=== PATIENT | male | born 1935 | race Caucasian/White ===

== ENCOUNTER 2020-01-24 12:45 | Emergency (ER) | payer MEDICARE, OTHER, SELFPAY ==
[2020-01-24 13:06] VITALS: BP 133/71; PULSE 89; RESP 18; TEMP 36.2; O2SAT 97
--- NOTE | 2020-01-24 13:12 | ED.GENADULT ---
HPI - General Adult General Chief complaint: Urogenital-Male <Eden Stark PA-C - Last Filed: 01/24/20 21:47> Stated complaint: urinary retention <Eden Stark PA-C - Last Filed: 01/24/20 21:47> Time Seen by Provider: 01/24/20 13:12 <Eden Stark PA-C - Last Filed: 01/24/20 21:47> Source: patient <MARY Borrero Last Filed: 01/24/20 21:47> Mode of arrival: ambulatory <MARY Borrero Last Filed: 01/24/20 21:47> Limitations: no limitations <Eden Stark PA-C - Last Filed: 01/24/20 21:47> History of Present Illness HPI narrative: Patient is here because he has been unable to void since Monday after he had surgery for hemorrhoidectomy. He said he was able to push out small amounts of urine over the course of this week but today the pain became unbearable. [facility] recommended that he come to the emergency room right away. Denies fever or chills, denies constipation. He had a normal bowel movement this morning. <Eden Stark PA-C - Last Filed: 01/24/20 21:47> Onset (ago): day(s) <Eden Stark PA-C - Last Filed: 01/24/20 21:47> Relieving factors: none <MARY Borrero Last Filed: 01/24/20 21:47> Exacerbating factors: none <MARY Borrero Last Filed: 01/24/20 21:47> Related Data Home medications: Home Medications Medication Instructions Recorded Confirmed Lactobacillus acidophilus 10 mg PO DAILY 02/28/19 04/25/19 atorvastatin 40 mg tablet 40 mg PO DAILY 02/28/19 04/25/19 docusate sodium 100 mg capsule 100 mg PO DAILY 02/28/19 04/25/19 prednisolone sodium phosphate 20 20 mg PO DAILY 02/28/19 04/25/19 mg/5 mL (4 mg/mL) oral solution triamcinolone acetonide 0.025 % 1 applic TOPICAL DAILY 02/28/19 04/25/19 topical cream witch gaston 50 % topical pads 1 pad TOPICAL BID 02/28/19 04/25/19 <Eden Stark PA-C - Last Filed: 01/24/20 21:47> Allergies/adverse reactions: Allergies Allergy/AdvReac Type Severity Reaction Status Date / Time simvastatin Allergy Unknown Unknown Verified 04/25/19 13:04 <Eden Stark PA-C - Last Filed: 01/24/20 21:47> Review of Systems Review of Systems: All systems reviewed & are unremarkable except as noted in HPI and below <Eden Stark PA-C - Last Filed: 01/24/20 21:47> [facility] Family History Family History: Family History Other Cerebrovascular accident Diabetes mellitus <Eden Stark PA-C - Last Filed: 01/24/20 21:47> Social History Social History: Social History Smoking status: Never smoker Alcohol intake: never Gender identity (if verbalized by the patient): Male <Eden Stark PA-C - Last Filed: 01/24/20 21:47> Exam Const: General: no acute distress and alert <Eden Stark PA-C - Last Filed: 01/24/20 21:47> Orientation/consciousness: patient oriented x3 <Eden Stark PA-C - Last Filed: 01/24/20 21:47> HENMT: Head: normal to inspection <Eden Stark PA-C - Last Filed: 01/24/20 21:47> Resp: Effort & Inspection: normal respiratory effort <Eden Stark PA-C - Last Filed: 01/24/20 21:47> Auscultation: clear to auscultation bilaterally <Eden Stark PA-C - Last Filed: 01/24/20 21:47> Cardio: Rate: regular rate <MARY Borrero Last Filed: 01/24/20 21:47> Rhythm: regular rhythm <MARY Borrero Last Filed: 01/24/20 21:47> GI: Inspection: distended <Eden Stark PA-C - Last Filed: 01/24/20 21:47> GI Palp: Yes Firmness to palpation present (GI) and Yes Bladder palpation abnormal (suprapubic tenderness) <MARY Borrero Last Filed: 01/24/20 21:47> Auscultation: normal bowel sounds <MARY Borrero Last Filed: 01/24/20 21:47> Back/Spine/Pelvis: Back: no CVA tenderness <MARY Borrero
[2020-01-24 14:23] LABS: Add Urine Microscopic? YES; Appearance Urine Clear (Clear); Bacteria Urine Trace /hpf; Bilirubin Urine Negative (Negative); Blood Urine Negative (Negative); Color Urine Yellow (Yellow); Glucose Urine UA Negative (Negative); Ketones Urine Trace mg/dL (Negative); Leukocyte Esterase Ur Negative LEU/UL (Negative); Mucus Urine Rare /lpf; Nitrate Urine Negative (Negative); Protein Urine Negative (Negative); RBC Urine 0-2 /hpf (0-2); Specific Grav Ur 1.013 (1.001-1.035); Urobilinogen Urine Negative mg/dL (<2.0); WBC Urine 0-3 /hpf
--- NOTE | 2020-01-24 15:18 | PC.NURSE ---
leg bag provided and fish care instructions given to patient
== END 2020-01-24 15:19 | disposition home or self-care (01) ==
PROVIDERS: Emergency Provider Emergency Medicine
DX: R33.9 Retention of urine, unspecified (principal); Z98.890 Other specified postprocedural states
CPT/HCPCS: 81001; 99283

== ENCOUNTER 2020-01-31 12:41 | Emergency (ER) | payer MEDICARE, OTHER, SELFPAY ==
[2020-01-31] VITALS (7 sets, daily range): BP systolic 104–120; BP diastolic 72–82; PULSE 79–90; RESP 12–19; TEMP 36.7; O2SAT 93–96
--- NOTE | 2020-01-31 13:47 | ED.GENADULT ---
HPI - General Adult General Chief complaint: Extremity Problem,Nontraumatic <Elgin Casey PA-C - Last Filed: 01/31/20 14:59> Stated complaint: ankle and leg swelling <Elgin Casey PA-C - Last Filed: 01/31/20 14:59> Time Seen by Provider: 01/31/20 12:53 <Elgin Casey PA-C - Last Filed: 01/31/20 14:59> Source: patient <Elgin Casey PA-C - Last Filed: 01/31/20 14:59> Mode of arrival: ambulatory <Elgin Casey PA-C - Last Filed: 01/31/20 14:59> Limitations: no limitations <Elgin Casey PA-C - Last Filed: 01/31/20 14:59> History of Present Illness HPI narrative: Patient presents with chief complaint of swelling to bilateral ankles and feet that has been occurring since Monday. Patient states that he wonders if it is connected to his Acosta catheter insertion area hemorrhoidectomy on Monday. Patient does not have calf pain erythema or swelling. Patient states that [facility]. Patient will not answer straightly whether or not he has been elevating his lower extremities or sitting with him by going down. He denies heart or renal failure or previous issues with fluid retention. Patient denies being on the water pills. Patient denies chest pain, shortness of breath, fever, chills, cellulitis, drainage or any other symptoms. <Elgin Casey PA-C - Last Filed: 01/31/20 14:59> Related Data Home medications: Home Medications Medication Instructions Recorded Confirmed Lactobacillus acidophilus 10 mg PO DAILY 02/28/19 04/25/19 atorvastatin 40 mg tablet 40 mg PO DAILY 02/28/19 04/25/19 docusate sodium 100 mg capsule 100 mg PO DAILY 02/28/19 04/25/19 triamcinolone acetonide 0.025 % 1 applic TOPICAL DAILY 02/28/19 04/25/19 topical cream witch gaston 50 % topical pads 1 pad TOPICAL BID 02/28/19 04/25/19 <Elgin Casey PA-C - Last Filed: 01/31/20 14:59> Allergies/adverse reactions: Allergies Allergy/AdvReac Type Severity Reaction Status Date / Time simvastatin Allergy Unknown Unknown Verified 01/31/20 12:56 <Elgin Casey PA-C - Last Filed: 01/31/20 14:59> Review of Systems Review of Systems: Narrative: CONSTITUTIONAL: Denies fever, chills, or sweats. EYES: Denies visual changes, redness, or discharge. ENT: Denies rhinorrhea, congestion, sore throat, or otalgia. CARDIOVASCULAR: Denies chest pain, palpitations, or edema. RESPIRATORY: Denies cough or dyspnea. GASTROINTESTINAL: Denies abdominal pain, nausea, vomiting, or diarrhea. GENITOURINARY: Denies dysuria or hematuria. SKIN: Denies rash or itching. MUSCULOSKELETAL: Reports feet and ankle pain, swelling denies back pain, myalgia or joint pain NEUROLOGIC: Denies headache, numbness, dizziness, or weakness. PSYCHIATRIC: Denies anxiety or depression. <Elgin Casey PA-C - Last Filed: 01/31/20 14:59> [facility] Family History Family History: Family History Other Cerebrovascular accident Diabetes mellitus <Elgin Casey PA-C - Last Filed: 01/31/20 14:59> Social History Social History: Social History Smoking status: Never smoker Alcohol intake: never Gender identity (if verbalized by the patient): Male <Elgin Casey PA-C - Last Filed: 01/31/20 14:59> Exam Narrative: Exam Narrative: GENERAL: Well-appearing, well-nourished, and in no acute distress. Acosta catheter in place with normal urine in bag. HEAD: Normocephalic, atraumatic. EYES: PERRLA and EOMI. CHEST: Clear to auscultation. No respiratory distress. HEART: Regular rate and rhythm. DP pulses present BL EXTREMITIES: edema to bilateral ankles and feet, not appreciated proximally. Not erythematous, hot, ecchymotic. cap refill and DP intact. no pain or appreciated swelling to lower legs. No pain with palpation of calf. no open wounds or weeping. SKIN: Warm, dry, no rash. N
[2020-01-31 14:12] LABS: Basophils Absolute Auto 0.1 K/mm3 (0.0-0.1); Basophils Percent Auto 0.7 % (0.2-1.2); Eosinophils Absolute Auto 0.1 K/mm3 (0-0.3); Eosinophils Percent Auto 1.3 % (0-4.4); Hematocrit 38.4 % (42.0-52.0); Immature Granulocyte Absolute 0.07 K/mm3 (0.00-0.031); Immature Granulocyte Percent A 0.8 % (0-0.5); Lymphocytes Absolute Auto 1.63 K/mm3 (0.9-3.2); Lymphocytes Percent Auto 18.3 % (18.3-44.2); Mean Corpuscular HGB Conc 33.9 g/dl (32-36); Mean Corpuscular Hemoglobin 32.5 pg (26-34); Mean Platelet Volume 10.4 fl (7.4-10.4); Monocytes Absolute Auto 0.9 K/mm3 (0.1-0.6); Monocytes Percent Auto 10.4 % (2.6-8.5); Neutrophils Absolute Auto 6.1 K/mm3 (1.3-6.7); Neutrophils Percent Auto 68.5 % (45.5-73.1); Platelet Count Result 270 k/mm3 (150-375); Red Cell Distribution Width 13.1 % (11.5-14.5); White Blood Count 8.9 K/mm3 (4.5-10.0)
[2020-01-31 14:30] LABS: Alanine Aminotransferase 15 U/L (4-50); Albumin Level 3.7 g/dL (3.5-5.1); Alkaline Phosphatase 54 U/L (38-126); Anion Gap 7 mmol/L (8-16); Aspartate Amino Transferase 31 U/L (17-59); Bilirubin,Total 0.4 mg/dL (0.2-1.3); Blood Urea Nitrogen 9 mg/dL (9-20); Calcium 8.9 mg/dL (8.4-10.2); Carbon Dioxide 29 mmol/L (22-30); Chloride 101 mmol/L (98-107); Estimated CRCL calculation 50 ml/min; Estimated Glomerular Filt Rate > 60; Glucose 94 mg/dL (75-110); Potassium 4.2 mmol/L (3.4-5.0); Sodium 137 mmol/L (137-145)
== END 2020-01-31 15:10 | disposition home or self-care (01) ==
PROVIDERS: Physician Assistant; Emergency Provider General Practice
DX: M79.89 Other specified soft tissue disorders (principal)
CPT/HCPCS: 36415; 80053; 85025; 99283

== ENCOUNTER 2020-02-25 21:04 | Inpatient (IN) | payer MEDICARE, OTHER, SELFPAY ==
--- NOTE | ~2020-02-25 | CT_ITS ---
EXAMINATION: CT abdomen pelvis w con EXAM DATE: 02/25/2020 23:55 INDICATION: Lower abdominal pain with urinary retention. TECHNIQUE: Spiral CT of the abdomen and pelvis was performed following intravenous injection of 100 m L Omnipaque 350. Axial, coronal and sagittal images were reviewed. The dose-length product (DLP) fo r this examination was 715.94 mGy-cm. The exposure was tailored according to patient size (auto mA e xposure control), and iterative reconstruction (ASIR) was used as additional dose reduction technique . There is no prior study for comparison. FINDINGS: The largest liver cyst is in the left, measures 1.1 cm. The spleen, pancreas, and adrenal glands are unremarkable. Gallbladder is unremarkable. No biliary obstruction. Portal and splenic v eins are patent. Kidneys enhance symmetrically. There is no hydronephrosis. There is mild prostat omegaly. There is a Acosta catheter within the bladder, which is collapsed. There is bladder wall thickening an d surrounding inflammation. Appearance is consistent with cystitis, but correlate with urinalysis. T here is no retroperitoneal or pelvic lymphadenopathy. There is mild scattered arteriosclerotic dise ase. There are small bilateral inguinal, and small umbilical fat-containing hernias. The appendix is normal. The stomach and small bowel are unremarkable. There is colonic fluid, corre late for diarrhea. There is extensive sigmoid colonic diverticulosis. Small region of inflammation ad jacent to one of the diverticula, uncomplicated diverticulitis. No free intraperitoneal gas. There is cardiomegaly. Sternotomy wires. Lingular and right middle lobe subsegmental atelectasis. There are no osteoblastic or osteolytic lesions identified. Chronic mild compression fracture of the L1 tonia tebral body. IMPRESSION: 1. Bladder wall thickening, enhancing mucosa and adjacent inflammation. Cystitis. Acosta in position. 2. Uncomplicated sigmoid diverticulitis. Probable diarrhea. 3. Mild prostatomegaly. 4. Fat-containing hernias. Reviewed, dictated and finalized at location G. ANALYST IMPRESSION: 1. Bladder wall thickening, enhancing mucosa and adjacent inflammation. Cystit is. Acosta in position. 2. Uncomplicated sigmoid diverticulitis. Probable diarrhea. 3. Mild prostatomegaly. 4. Fat-containing hernias.
[2020-02-25 21:04] VITALS: BP 111/55; PULSE 112; RESP 24; TEMP 37.1; O2SAT 95
--- NOTE | 2020-02-25 21:52 | ED.WEAKNESS ---
HPI - Weakness General Chief complaint: Weakness Stated complaint: FALL Time Seen by Provider: 02/25/20 21:07 History of Present Illness HPI Narrative: Patient is an 84-year-old male who presents ER with weakness and urinary retention. Patient reports in early January he had a hemorrhoidectomy and couple days later he was suffering from urinary retention. He had a Acosta catheter placed and it remained there until 02/21/2020. After its removal he was able to void up until the last 2 days where he has had significant decrease in his ability to urinate. He is cut lower abdominal pressure. Reports some mild dysuria. No fevers or chills or sweats. Prior to arriving he was on the toilet trying to use restroom and became very lightheaded and fell down. He did not lose consciousness or strike his head. Patient ran out of his Flomax yesterday. Related Data Home Medications Medication Instructions Recorded Confirmed Lactobacillus acidophilus 10 mg PO DAILY 02/28/19 02/26/20 atorvastatin 40 mg tablet 40 mg PO DAILY 02/28/19 02/26/20 docusate sodium 100 mg capsule 100 mg PO DAILY 02/28/19 02/26/20 triamcinolone acetonide 0.025 % 1 applic TOPICAL DAILY 02/28/19 02/26/20 topical cream witch gaston 50 % topical pads 1 pad TOPICAL BID 02/28/19 02/26/20 aspirin 81 mg PO DAILY 02/26/20 02/26/20 loratadine 10 mg PO DAILY 02/26/20 02/26/20 Allergies Allergy/AdvReac Type Severity Reaction Status Date / Time simvastatin Allergy Unknown Unknown Verified 02/26/20 01:33 Review of Systems Review of Systems: All systems reviewed & are unremarkable except as noted in HPI and below Constitutional: Constitutional: Denies chills, Denies fever(s) and Reports weakness ENT: Denies nasal congestion and Denies sore throat Gastrointestinal: Gastrointestinal: Reports abdominal pain, Denies diarrhea, Denies nausea and Denies vomiting Genitourinary: Genitourinary: Reports oliguria, Reports dysuria and Denies urinary frequency Neurologic: Denies syncope, Denies focal weakness and Denies numbness PMF Past Medical History Medical History (Updated 02/26/20 @ 03:13 by Yuri Jordan MD) Grade III internal hemorrhoids Surgical History Surgical History (Updated 02/25/20 @ 22:01 by Yuri Jordan MD) H/O hemorrhoidectomy Family History Family History Other Cerebrovascular accident Diabetes mellitus Social History Social History Smoking status: Former smoker Tobacco type: cigarettes Second hand tobacco smoke exposure: Yes Smoking end date: 02/21/82 Alcohol intake: never Substance use: never Substance use type: does not use Gender identity (if verbalized by the patient): Male Sexual Orientation (if Verbalized by the Patient): Straight or Heterosexual Exam Narrative: Exam Narrative: GENERAL: Well-appearing, well-nourished, and in no acute distress. HEAD: Normocephalic, atraumatic. CHEST: Clear to auscultation. No respiratory distress. HEART: Regular rate and rhythm. Normal peripheral pulses. ABDOMEN: Soft, mild suprapubic discomfort with no guarding, nondistended. EXTREMITIES: Normal range of motion. No edema. SKIN: Warm, dry, no rash. NEURO: Alert and oriented x3. PSYCH: Normal mood and affect. Course Course Emergency Course: Admit to hospitalist. Ceftriaxone and flagyl for UTI/diverticulitis. Vital Signs Vital signs: Vital Signs Temperature 98.8 F 02/25/20 21:04 Pulse Rate 112 H 02/25/20 21:04 Respiratory Rate 24 H 02/25/20 21:04 Blood Pressure 111/55 L 02/25/20 21:04 Pulse Oximetry 95 02/25/20 21:04 Temperature 97.5 F L 02/26/20 02:40 Pulse Rate 59 L 02/26/20 02:40 Respiratory Rate 20 02/26/20 02:40 Blood Pressure 125/66 02/26/20 02:40 Pulse Oximetry 99 02/26/20 02:40 MDM - Weakness Lab Data Result diagrams: 02/25/20 22:02 02/25/20
[2020-02-25 22:08] VITALS: BP 103/64; PULSE 95
[2020-02-25 22:09] VITALS: BP 105/63; PULSE 100
[2020-02-25 22:09] LABS: Basophils Absolute Auto 0.1 K/mm3 (0.0-0.1); Basophils Percent Auto 0.2 % (0.2-1.2); Hematocrit 39.4 % (42.0-52.0); Hemoglobin 13.7 g/dL (14.0-18.0); Immature Granulocyte Absolute 0.25 K/mm3 (0.00-0.031); Immature Granulocyte Percent A 0.9 % (0-0.5); Lymphocytes Absolute Auto 0.92 K/mm3 (0.9-3.2); Lymphocytes Percent Auto 3.2 % (18.3-44.2); Mean Corpuscular HGB Conc 34.8 g/dl (32-36); Mean Corpuscular Hemoglobin 32.8 pg (26-34); Mean Corpuscular Volume 94.3 fl (80-100); Mean Platelet Volume 10.8 fl (7.4-10.4); Monocytes Absolute Auto 3.1 K/mm3 (0.1-0.6); Monocytes Percent Auto 10.6 % (2.6-8.5); Neutrophils Absolute Auto 24.6 K/mm3 (1.3-6.7); Neutrophils Percent Auto 85.1 % (45.5-73.1); Platelet Count Result 233 k/mm3 (150-375); Red Blood Count 4.18 M/mm3 (4.6-6.20); Red Cell Distribution Width 13.5 % (11.5-14.5); White Blood Count 28.9 K/mm3 (4.5-10.0)
[2020-02-25 22:10] VITALS: BP 83/52; PULSE 104
[2020-02-25 22:19] LABS: Anion Gap 7 mmol/L (8-16); Blood Urea Nitrogen 19 mg/dL (9-20); Calcium 9.2 mg/dL (8.4-10.2); Carbon Dioxide 25 mmol/L (22-30); Chloride 101 mmol/L (98-107); Estimated Glomerular Filt Rate 58; Glucose 142 mg/dL (75-110); Potassium 3.8 mmol/L (3.4-5.0); Sodium 133 mmol/L (137-145)
[2020-02-25 22:52] LABS: Lactic Acid Reflex 1.6 mmol/L (0.7-2.1)
[2020-02-25] MEDS: SODIUM CHLORIDE 0.9% IV 1,000 ML 999 ML IV CONT (23:10)
[2020-02-25 23:11] VITALS: BP 107/69; PULSE 96; RESP 18; O2SAT 98
[2020-02-25 23:22] LABS: Add Urine Microscopic? YES; Appearance Urine Turbid (Clear); Bilirubin Urine Negative (Negative); Blood Urine 1+ (Negative); Color Urine Yellow (Yellow); Glucose Urine UA Negative (Negative); Ketones Urine Trace mg/dL (Negative); Leukocyte Esterase Ur 2+ LEU/UL (Negative); Mucus Urine Heavy /lpf; Nitrate Urine Positive (Negative); Protein Urine 2+ mg/dL (Negative); RBC Urine 51-75 /hpf (0-2); Specific Grav Ur 1.019 (1.001-1.035); Squamous Epithelial Cell Urine Few /hpf (Few); Urobilinogen Urine Negative mg/dL (<2.0); WBC Urine >75 /hpf
[2020-02-26] VITALS (10 sets, daily range): BP systolic 82–125; BP diastolic 41–67; PULSE 59–116; RESP 18–20; TEMP 36.3–37.3; O2SAT 91–99; BMI 30.6
[2020-02-26] MEDS: SODIUM CHLORIDE 0.9% IV 1,000 ML 999 ML IV CONT
--- NOTE | 2020-02-26 01:14 | PM.IMHP ---
H&P: HPI History of Present Illness Date/Time: 02/26/20 01:14 Che Complaint: Urinary retention, fall, weakness Narrative: Herb Hays is a 84 year old male with past medical history of hemorrhoids status post hemorrhoidectomy, urinary retention who presents the ED with complaints of urinary retention. Patient had hemorrhoidectomy on 01/20/2020. He then presented to the ED on 01/24/2020 with urinary retention and was given a Acosta catheter and Flomax Rx. [place] [facility] up [place] and had Acosta catheter removed 02/21/2020. He was able to urinate for 2 days with no problems and then starting having issues on 02/23/2020. He now ran out of his Flomax as well. Patient states he has never had issues with BPH or urinary retention before the surgery. It appears patient has had a prolonged course of postop urinary retention, however I wonder if there was any neurogenic bladder complications from the hemorrhoidectomy. Of note he states he also had issues with constipation and used mineral oil with good results with 9 bowel movements yesterday. He felt so weak that he fell off of his commode and could not get up on his own. He needed help from his daughter. He denies any trauma to his head or any symptoms from the fall. He denies fever, chills, nausea, vomiting, chest pain. In the ED: In ED patient was found to have cystitis with positive UA and CT findings consistent with acute cystitis. Acosta catheter was placed. CT scan also showed diverticulitis and Flagyl was added for antibiotics. Was given IV fluid boluses with good improvement was blood pressure. Patient admitted to medical medical floor without telemetry. Review of Systems Review of Systems: Narrative: Constitutional: No Fever, No Chills, No Night Sweats, No Fatigue, No Malaise ENT/Mouth: No Hearing Changes, No Ear Pain, No Nasal Congestion, No Sinus Pain, No Hoarseness, No sore throat, No Rhinorrhea, No Swallowing Difficulty Eyes: No Eye Pain, No Redness, No Vision Changes Cardiovascular: No Chest Pain, No Palpitations, No Dyspnea on Exertion, No Orthopnea, No Claudication, No Edema Respiratory: No Cough, No Sputum, No Wheezing, No Shortness of Breath Gastrointestinal: Endorses tenesmus, constipation and subsequent diarrhea after mineral oil. No Nausea, No Vomiting, No Abdominal Pain, No Heartburn, No Hematochezia, No Melena Genitourinary: Complaints of urinary retention, urgency. Denies hematuria. Musculoskeletal: No Arthralgias, No Myalgias, No Joint Swelling, No Joint Stiffness, No Back Pain Skin: No Skin Lesions, No Pruritis, No Hair Changes Neuro: No Weakness, No Numbness, No Paresthesias, No Loss of Consciousness, No Syncope, No Dizziness, No Headache Psych: No Anxiety/Panic, No Depression, No Insomnia Heme: No Bruising, No Bleeding Lymph: No Adenopathy Endocrine: No Polyuria, No Polydipsia, No Temperature Intolerance [facility] Past Medical History Medical History Essential hypertension Grade III internal hemorrhoids Hyperlipidemia Seasonal allergies Surgical History Surgical History H/O hemorrhoidectomy Hx of mitral valve repair Family History Family History Other Cerebrovascular accident Diabetes mellitus Social History Social History (Updated 02/26/20 @ 05:09 by Armand Castano DO) Social History: [employer] , 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
[2020-02-26] MEDS: metroNIDAZOLE 500 MG/ISO 100ML 500 MG/100 ML BAG 100 MG IVPB ×3 (01:26→17:08)
--- NOTE | 2020-02-26 02:18 | ADMGEN ---
This patient, Herb Hays, was admitted to 2 Medical Room 260-. Patient/family oriented to hospital policies and general routines including ID bracelet, bed and alarms, visiting hours, pain management, procedures, bathroom and other care routines, personal items, smoking policy, room service/diet, and visiting hours. Information on how to activate the Rapid Response Team has been discussed. Patient/Family are encouraged to report perceived risks to care and to ask questions if they do not understand what they are told or what they should do.
[2020-02-26] MEDS: SODIUM CHLORIDE 0.9% IV 1,000 ML 125 ML IV CONT (02:55)
[2020-02-26 09:29] LABS: Basophils Absolute Auto 0.1 K/mm3 (0.0-0.1); Basophils Percent Auto 0.3 % (0.2-1.2); Eosinophils Absolute Auto 0.2 K/mm3 (0-0.3); Eosinophils Percent Auto 0.5 % (0-4.4); Hemoglobin 11.3 g/dL (14.0-18.0); Immature Granulocyte Absolute 0.44 K/mm3 (0.00-0.031); Immature Granulocyte Percent A 1.4 % (0-0.5); Lymphocytes Absolute Auto 1.17 K/mm3 (0.9-3.2); Lymphocytes Percent Auto 3.7 % (18.3-44.2); Mean Corpuscular HGB Conc 34.2 g/dl (32-36); Mean Corpuscular Volume 96.5 fl (80-100); Mean Platelet Volume 10.9 fl (7.4-10.4); Monocytes Absolute Auto 2.4 K/mm3 (0.1-0.6); Monocytes Percent Auto 7.5 % (2.6-8.5); Neutrophils Absolute Auto 27.4 K/mm3 (1.3-6.7); Neutrophils Percent Auto 86.6 % (45.5-73.1); Platelet Count Result 203 k/mm3 (150-375); Red Blood Count 3.42 M/mm3 (4.6-6.20); Red Cell Distribution Width 13.8 % (11.5-14.5); White Blood Count 31.6 K/mm3 (4.5-10.0)
[2020-02-26 09:39] LABS: Alanine Aminotransferase 17 U/L (4-50); Albumin Level 2.9 g/dL (3.5-5.1); Alkaline Phosphatase 42 U/L (38-126); Anion Gap 6 mmol/L (8-16); Aspartate Amino Transferase 47 U/L (17-59); Bilirubin,Total 0.8 mg/dL (0.2-1.3); Blood Urea Nitrogen 17 mg/dL (9-20); Calcium 7.7 mg/dL (8.4-10.2); Carbon Dioxide 22 mmol/L (22-30); Chloride 103 mmol/L (98-107); Estimated CRCL calculation 48 ml/min; Estimated Glomerular Filt Rate > 60; Glucose 205 mg/dL (75-110); Potassium 4.1 mmol/L (3.4-5.0); Sodium 131 mmol/L (137-145)
--- NOTE | 2020-02-26 10:11 | WPDURCON ---
Assessment and Plan Assessment and plan (1) UTI (urinary tract infection): Qualifiers: Hematuria presence: without hematuria Urinary tract infection type: acute cystitis Qualified Code(s): N30.00 - Acute cystitis without hematuria Code(s): N39.0 - Urinary tract infection, site not specified Status: Acute Assessment and Plan: Continue IV Ceftriaxone, tailor to culture results. Likely secondary to either multiple catheter placement or retention. (2) Urinary retention: Code(s): R33.9 - Retention of urine, unspecified Status: Acute Assessment and Plan: Will restart Flomax 0.4mg BID, and start Finasteride 5mg QD. He will keep fish catheter in place until he follows up with us. He has failed two voiding trials at the [facility], therefore we will not do another until he has [facility] in the office. No further evaluation necessary at this time. (3) Indwelling Fish catheter present: Code(s): Z97.8 - Presence of other specified devices Status: Acute Urology Consult Note HPI Date Seen: 02/26/20 Requesting Physician: TRISTIAN Beaver Primary Care Provider: [facility] Consult Narrative Narrative: Herb Hays is a 84 year old male who presented to the ER after a fall at home while he was on the toilet trying to urinate. He had a hemorrhoidectomy a month ago at the [facility] and quickly developed urinary retention which landed him in our ER on 01/24/2020 for a fish catheter and Flomax 0.4mg BID. He since then has had two voiding trials at the [facility] and has not passed either one, most recently this week. He was seen in the ER without a fish and one was placed. A CT scan was done showing bladder wall thickening, cystitis and mild prostatomegaly. His WBC is 28.9, creatinine 1.20, and UA is positive for infection, urine culture and blood cultures are pending. He states that prior to his hemorrhoidectomy he had no symptoms of BPH or OAB. He has never seen a urologist prior to this episode. He tolerates Flomax BID well, but has run out of the medication and hasn't had it in three days. Review of Systems Cardiovascular: Cardiovascular: Denies chest pain Respiratory: Respiratory: Reports no additional respiratory complaints Gastrointestinal: Gastrointestinal: Denies abdominal pain, Denies nausea and Denies vomiting Genitourinary: Genitourinary: Denies hematuria, Denies flank pain and Reports urinary hesitancy PMF Past Medical History Medical History Essential hypertension Grade III internal hemorrhoids Hyperlipidemia Seasonal allergies Surgical History Surgical History H/O hemorrhoidectomy Hx of mitral valve repair Family History Family History Other Cerebrovascular accident Diabetes mellitus Social History Social History Social History: [employer] , 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 status: Former smoker Tobacco type: cigarettes Second hand tobacco smoke exposure: Yes Smoking end date: 02/21/82 Alcohol intake: never Substance use: never Substance use type: does not use Living arrangements: with family Occupation/Education: retired Gender identity (if verbalized by the patient): Male Sexual Orientation (if Verbalized by the Patient): Straight or Heterosexual Meds Home Medications and Allergies Home Medications Medication Instructions Recorded Confirmed Type Lactobacillus acidophilus 10 mg PO DAILY 02/28/19 02/26/20 History atorvastatin 40 mg tablet 40 mg PO DAILY 02/28/19 02/26/20 History docusate sodium 100 mg capsule 100 mg PO DAILY 02/28/19 02/26/20 History hydrocortisone acetate 25 mg 25 mg RECTAL DAILY #14 each 02/28/19 02/26/20 Rx rectal suppository triamcinolone acetonide 0.02
[2020-02-26] MEDS: SODIUM CHLORIDE 0.9% IV 1,000 ML 100 ML IV CONT ×2 (10:38→20:52)
[2020-02-26] MEDS: ATORVASTATIN 40 MG TABLET PO (10:41)
[2020-02-26] MEDS: TAMSULOSIN HCL 0.4 MG CAPSULE PO ×2 (10:41→17:08)
[2020-02-26] MEDS: LORATADINE 10 MG TABLET PO (10:41)
[2020-02-26] MEDS: DOCUSATE SODIUM 100 MG CAPSULE PO (10:41)
[2020-02-26] MEDS: ASPIRIN 81 MG ENTERIC TABLET PO (10:41)
[2020-02-26] MEDS: ACETAMINOPHEN 325 MG TABLET 650 MG PO (10:46)
[2020-02-26] MEDS: ACIDOPHILUS/BULGARICUS CHEWABLE TABLET 1 TABLET PO (11:13)
[2020-02-26] MEDS: FINASTERIDE 5 MG TABLET PO (11:13)
--- NOTE | 2020-02-26 14:44 | P.PNIM_ITS ---
Progress Note: A&P Assessment and Plan (1) Urinary retention: Code(s): R33.9 - Retention of urine, unspecified Status: Acute Assessment and Plan: * Patient presents with urinary retention starting on 01/24/2020 after his hemorrhoidectomy 01/20/2020. At that time he was discharged home with a Acosta catheter to follow-up with the [facility]. Acosta catheter removed at [facility] 02/21/2020, patient developed new urinary retention on 02/23/2020. That is his 2nd failed voiding trial at [facility] * Appreciate urology recommendations. He wishes to follow with our group now instead of [facility]. Noted plan to keep Acosta in until office follow up for urodynamics. * Continue Flomax BID and Proscar has been added. (2) UTI (urinary tract infection): Qualifiers: Hematuria presence: without hematuria Urinary tract infection type: acute cystitis Qualified Code(s): N30.00 - Acute cystitis without hematuria Code(s): N39.0 - Urinary tract infection, site not specified Status: Acute Assessment and Plan: * Suspect related to urinary retention vs multiple catheter placements vs. both. UA grossly abnormal and CT demonstrated bladder wall thickening consistent with cystitis. * Continue IV Rocephin (day 2) with urine and blood cultures pending. (3) Sepsis: Qualifiers: Sepsis type: sepsis due to unspecified organism Sepsis acute organ dysfunction status: without acute organ dysfunction Qualified Code(s): A41.9 - Sepsis, unspecified organism Code(s): A41.9 - Sepsis, unspecified organism Status: Acute Assessment and Plan: * Criteria met on arrival with leukocytosis and mild tachycardia. Suspected source is urinary, see above. * Continue abx, monitor urine output and vital signs. (4) Diverticulitis: Code(s): K57.92 - Diverticulitis of intestine, part unspecified, without perforation or abscess without bleeding Status: Acute Assessment and Plan: * Patient states he had 9 episodes diarrhea yesterday after using mineral oil to treat constipation. CT demonstrates small area of inflammation near a diverticula that may represent uncomplicated diverticulitis. * No abdominal pain today. Continue rocephin and flagyl to cover for possible diverticulitis. No further diarrhea today. * Can order stool studies if he has more diarrhea. (5) Orthostasis: Code(s): I95.1 - Orthostatic hypotension Status: Acute Assessment and Plan: * Still with significant orthostasis this morning, symptomatic with some dizziness. May be related to hypovolemia/GI losses. * Continue IV hydration. Check orthostatics Q shift, monitor. (6) Fall: Qualifiers: Encounter type: initial encounter Qualified Code(s): W19.XXXA - Unspecified fall, initial encounter Code(s): W19.XXXA - Unspecified fall, initial encounter Status: Acute Assessment and Plan: * Patient had a fall 02/23 after sitting on commode, suspect secondary to weakness from UTI, retention, orthostasis. * PT/OT. (7) Essential hypertension: Code(s): I10 - Essential (primary) hypertension Status: Chronic Assessment and Plan: * History of hypertension now with orthostatic hypotension. Hold his home lopressor. Monitor BP and adjust treatment as needed. Subje
--- NOTE | 2020-02-26 14:44 | PM.IMPN ---
Progress Note: A&P Assessment and Plan (1) Urinary retention: Code(s): R33.9 - Retention of urine, unspecified Status: Acute Assessment and Plan: Patient presents with urinary retention starting on 01/24/2020 after his hemorrhoidectomy 01/20/2020. At that time he was discharged home with a Acosta catheter to follow-up with the [facility]. Acosta catheter removed at [facility] 02/21/2020, patient developed new urinary retention on 02/23/2020. That is his 2nd failed voiding trial at [facility] Appreciate urology recommendations. He wishes to follow with our group now instead of [facility]. Noted plan to keep Acosta in until office follow up for urodynamics. Continue Flomax BID and Proscar has been added. (2) UTI (urinary tract infection): Qualifiers: Hematuria presence: without hematuria Urinary tract infection type: acute cystitis Qualified Code(s): N30.00 - Acute cystitis without hematuria Code(s): N39.0 - Urinary tract infection, site not specified Status: Acute Assessment and Plan: Suspect related to urinary retention vs multiple catheter placements vs. both. UA grossly abnormal and CT demonstrated bladder wall thickening consistent with cystitis. Continue IV Rocephin (day 2) with urine and blood cultures pending. (3) Sepsis: Qualifiers: Sepsis type: sepsis due to unspecified organism Sepsis acute organ dysfunction status: without acute organ dysfunction Qualified Code(s): A41.9 - Sepsis, unspecified organism Code(s): A41.9 - Sepsis, unspecified organism Status: Acute Assessment and Plan: Criteria met on arrival with leukocytosis and mild tachycardia. Suspected source is urinary, see above. Continue abx, monitor urine output and vital signs. (4) Diverticulitis: Code(s): K57.92 - Diverticulitis of intestine, part unspecified, without perforation or abscess without bleeding Status: Acute Assessment and Plan: Patient states he had 9 episodes diarrhea yesterday after using mineral oil to treat constipation. CT demonstrates small area of inflammation near a diverticula that may represent uncomplicated diverticulitis. No abdominal pain today. Continue rocephin and flagyl to cover for possible diverticulitis. No further diarrhea today. Can order stool studies if he has more diarrhea. (5) Orthostasis: Code(s): I95.1 - Orthostatic hypotension Status: Acute Assessment and Plan: Still with significant orthostasis this morning, symptomatic with some dizziness. May be related to hypovolemia/GI losses. Continue IV hydration. Check orthostatics Q shift, monitor. (6) Fall: Qualifiers: Encounter type: initial encounter Qualified Code(s): W19.XXXA - Unspecified fall, initial encounter Code(s): W19.XXXA - Unspecified fall, initial encounter Status: Acute Assessment and Plan: Patient had a fall 02/23 after sitting on commode, suspect secondary to weakness from UTI, retention, orthostasis. PT/OT. (7) Essential hypertension: Code(s): I10 - Essential (primary) hypertension Status: Chronic Assessment and Plan: History of hypertension now with orthostatic hypotension. Hold his home lopressor. Monitor BP and adjust treatment as needed. Subjective Date/time seen: 02/26/20 0945 Interval history: Mr. Hays is a pleasant 84yo M admitted for orthostatic hypotension, UTI, urinary retention, diverticulitis. He fell at home yesterday trying to get off toilet and tells me he has been feeling weaker over the last 1 month. Reports feeling mildly dizzy with standing for orthostatic vitals earlier. He denies chest pain
[2020-02-26] MEDS: ONDANSETRON INJ 4 MG/2 ML VIAL IV PUSH (23:41)
[2020-02-27] VITALS (11 sets, daily range): BP systolic 83–118; BP diastolic 41–61; PULSE 57–107; RESP 18–22; TEMP 32.7–38.2; O2SAT 93–99
[2020-02-27] MEDS: metroNIDAZOLE 500 MG/ISO 100ML 500 MG/100 ML BAG 100 MG IVPB ×3 (02:05→17:11)
[2020-02-27 05:07] LABS: Hematocrit 30.3 % (42.0-52.0); Hemoglobin 10.1 g/dL (14.0-18.0); Mean Corpuscular HGB Conc 33.3 g/dl (32-36); Mean Corpuscular Hemoglobin 31.7 pg (26-34); Mean Platelet Volume 11.6 fl (7.4-10.4); Platelet Count Result 178 k/mm3 (150-375); Red Blood Count 3.19 M/mm3 (4.6-6.20); Red Cell Distribution Width 13.9 % (11.5-14.5); White Blood Count 28.7 K/mm3 (4.5-10.0)
[2020-02-27 05:25] LABS: Anion Gap 5 mmol/L (8-16); Blood Urea Nitrogen 13 mg/dL (9-20); Calcium 7.3 mg/dL (8.4-10.2); Carbon Dioxide 21 mmol/L (22-30); Chloride 105 mmol/L (98-107); Estimated CRCL calculation 48 ml/min; Estimated Glomerular Filt Rate > 60; Glucose 111 mg/dL (75-110); Potassium 3.7 mmol/L (3.4-5.0); Sodium 131 mmol/L (137-145)
[2020-02-27] MEDS: SODIUM CHLORIDE 0.9% IV 1,000 ML 100 ML IV CONT ×2 (06:18→14:30)
--- NOTE | 2020-02-27 08:24 | PC.NURSE ---
call to pharm for missing dose of IV flagyl due at 0900
[2020-02-27] MEDS: SODIUM CHLORIDE 0.9% IV 500 ML IV CONT (09:31)
[2020-02-27] MEDS: ATORVASTATIN 40 MG TABLET PO (09:34)
[2020-02-27] MEDS: ASPIRIN 81 MG ENTERIC TABLET PO (09:34)
[2020-02-27] MEDS: TAMSULOSIN HCL 0.4 MG CAPSULE PO ×2 (09:34→17:12)
[2020-02-27] MEDS: FINASTERIDE 5 MG TABLET PO (09:34)
[2020-02-27] MEDS: ACIDOPHILUS/BULGARICUS CHEWABLE TABLET 1 TABLET PO (09:34)
[2020-02-27] MEDS: LORATADINE 10 MG TABLET PO (09:35)
--- NOTE | 2020-02-27 09:48 | PC.NURSE ---
500 ml NS bolus administered out of bag of IVFs hanging in room for maintinence fluids, new IV site obtained
--- NOTE | 2020-02-27 10:53 | P.PNIM_ITS ---
Progress Note: A&P Assessment and Plan (1) Urinary retention: Code(s): R33.9 - Retention of urine, unspecified Status: Acute Assessment and Plan: * Patient presents with urinary retention starting on 01/24/2020 after his hemorrhoidectomy 01/20/2020. At that time he was discharged home with a Acosta catheter to follow-up with the [place]. Acosta catheter removed at [facility] 02/21/2020, patient developed new urinary retention on 02/23/2020. That is his 2nd failed voiding trial at [facility] * Appreciate urology recommendations. He wishes to follow with our group now instead of [facility]. Noted plan to keep Acosta in until office follow up for urodynamics. * Continue Flomax BID and Proscar has been added. (2) UTI (urinary tract infection): Qualifiers: Hematuria presence: without hematuria Urinary tract infection type: acute cystitis Qualified Code(s): N30.00 - Acute cystitis without hematuria Code(s): N39.0 - Urinary tract infection, site not specified Status: Acute Assessment and Plan: * Suspect related to urinary retention vs multiple catheter placements vs. both. UA grossly abnormal and CT demonstrated bladder wall thickening consistent with cystitis. * Urine culture growing Pseudomonas. Was on Rocephin x 2 days and switched to Imipenem this AM based on culture, while awaiting sensitivity report. Blood cultures are pending with no growth to date. (3) Sepsis: Qualifiers: Sepsis acute organ dysfunction status: without acute organ dysfunction Sepsis type: sepsis due to unspecified organism Qualified Code(s): A41.9 - Sepsis, unspecified organism Code(s): A41.9 - Sepsis, unspecified organism Status: Acute Assessment and Plan: * Criteria met on arrival with leukocytosis and mild tachycardia. Suspected source is urinary, see above. * Continue abx (changed to imipenem this AM), monitor urine output and vital signs. (4) Diverticulitis: Code(s): K57.92 - Diverticulitis of intestine, part unspecified, without perforation or abscess without bleeding Status: Acute Assessment and Plan: * Patient states he had 9 episodes diarrhea 02/25 after using mineral oil to treat constipation. CT demonstrates small area of inflammation near a diverticula that may represent uncomplicated diverticulitis. * No abdominal pain, diarrhea improved (1 episode yesterday, none today). * Continue flagyl to cover for possible diverticulitis. Stool studies pending. He tells me he recently had C diff from antibiotics so we will add C diff test ing to stool studies. (5) Orthostasis: Code(s): I95.1 - Orthostatic hypotension Status: Acute Assessment and Plan: * Still with significant orthostasis this morning, symptomatic with some dizzin ess but. May be related to hypovolemia/GI losses. * Continue IV hydration, 500mL bolus this morning. Check orthostatics Q shift, monitor. (6) Fall: Qualifiers: Encounter type: initial encounter Qualified Code(s): W19.XXXA - Unspecified fall, initial encounter Code(s): W19.XXXA - Unspecified fall, initial encounter Status: Acute Assessment and Plan: * Patient had a fall 02/23 after sitting on commode, suspect secondary to weakness from UTI, retention, orthostasis. * PT/OT. (7) Essential hypertension: Code(s): I10 -
--- NOTE | 2020-02-27 10:53 | PM.IMPN ---
Progress Note: A&P Assessment and Plan (1) Urinary retention: Code(s): R33.9 - Retention of urine, unspecified Status: Acute Assessment and Plan: Patient presents with urinary retention starting on 01/24/2020 after his hemorrhoidectomy 01/20/2020. At that time he was discharged home with a Acosta catheter to follow-up with the [facility]. Acosta catheter removed at [facility] 02/21/2020, patient developed new urinary retention on 02/23/2020. That is his 2nd failed voiding trial at [facility] Appreciate urology recommendations. He wishes to follow with our group now instead of [facility]. Noted plan to keep Acosta in until office follow up for urodynamics. Continue Flomax BID and Proscar has been added. (2) UTI (urinary tract infection): Qualifiers: Hematuria presence: without hematuria Urinary tract infection type: acute cystitis Qualified Code(s): N30.00 - Acute cystitis without hematuria Code(s): N39.0 - Urinary tract infection, site not specified Status: Acute Assessment and Plan: Suspect related to urinary retention vs multiple catheter placements vs. both. UA grossly abnormal and CT demonstrated bladder wall thickening consistent with cystitis. Urine culture growing Pseudomonas. Was on Rocephin x 2 days and switched to Imipenem this AM based on culture, while awaiting sensitivity report. Blood cultures are pending with no growth to date. (3) Sepsis: Qualifiers: Sepsis acute organ dysfunction status: without acute organ dysfunction Sepsis type: sepsis due to unspecified organism Qualified Code(s): A41.9 - Sepsis, unspecified organism Code(s): A41.9 - Sepsis, unspecified organism Status: Acute Assessment and Plan: Criteria met on arrival with leukocytosis and mild tachycardia. Suspected source is urinary, see above. Continue abx (changed to imipenem this AM), monitor urine output and vital signs. (4) Diverticulitis: Code(s): K57.92 - Diverticulitis of intestine, part unspecified, without perforation or abscess without bleeding Status: Acute Assessment and Plan: Patient states he had 9 episodes diarrhea 02/25 after using mineral oil to treat constipation. CT demonstrates small area of inflammation near a diverticula that may represent uncomplicated diverticulitis. No abdominal pain, diarrhea improved (1 episode yesterday, none today). Continue flagyl to cover for possible diverticulitis. Stool studies pending. He tells me he recently had C diff from antibiotics so we will add C diff testing to stool studies. (5) Orthostasis: Code(s): I95.1 - Orthostatic hypotension Status: Acute Assessment and Plan: Still with significant orthostasis this morning, symptomatic with some dizziness but. May be related to hypovolemia/GI losses. Continue IV hydration, 500mL bolus this morning. Check orthostatics Q shift, monitor. (6) Fall: Qualifiers: Encounter type: initial encounter Qualified Code(s): W19.XXXA - Unspecified fall, initial encounter Code(s): W19.XXXA - Unspecified fall, initial encounter Status: Acute Assessment and Plan: Patient had a fall 02/23 after sitting on commode, suspect secondary to weakness from UTI, retention, orthostasis. PT/OT. (7) Essential hypertension: Code(s): I10 - Essential (primary) hypertension Status: Chronic Assessment and Plan: History of hypertension now with orthostatic hypotension. Hold his home lopressor. Monitor BP and adjust treatment as needed. Subjective Date/time seen: 02/27/20 10:00 Interval history: Mr. Hays is a pleasant 84[facility]
[2020-02-27] MEDS: SACCHAROMYCES BOULARDII 250 MG CAPSULE PO ×2 (11:25→17:18)
--- NOTE | 2020-02-27 19:37 | PC.NURSE ---
pt had formed stool today states his diarrhea was due to him taking too many laxatives at home, c-diff cancelled
[2020-02-28] VITALS (9 sets, daily range): BP systolic 91–173; BP diastolic 53–89; PULSE 67–91; RESP 16–22; TEMP 36.1–36.9; O2SAT 95–98
[2020-02-28] MEDS: metroNIDAZOLE 500 MG/ISO 100ML 500 MG/100 ML BAG 100 MG IVPB ×3 (00:27→16:36)
[2020-02-28] MEDS: SODIUM CHLORIDE 0.9% IV 1,000 ML 100 ML IV CONT (01:58)
[2020-02-28 05:49] LABS: Alanine Aminotransferase 19 U/L (4-50); Albumin Level 2.5 g/dL (3.5-5.1); Alkaline Phosphatase 56 U/L (38-126); Anion Gap 2 mmol/L (8-16); Aspartate Amino Transferase 37 U/L (17-59); Bilirubin,Total 0.4 mg/dL (0.2-1.3); Blood Urea Nitrogen 10 mg/dL (9-20); Calcium 7.5 mg/dL (8.4-10.2); Carbon Dioxide 26 mmol/L (22-30); Chloride 106 mmol/L (98-107); Estimated CRCL calculation 53 ml/min; Estimated Glomerular Filt Rate > 60; Glucose 99 mg/dL (75-110); Magnesium 2.3 mg/dL (1.6-2.3); Potassium 3.9 mmol/L (3.4-5.0); Sodium 134 mmol/L (137-145)
[2020-02-28 07:23] LABS: Basophils Absolute Auto 0.1 K/mm3 (0.0-0.1); Basophils Percent Auto 0.3 % (0.2-1.2); Eosinophils Absolute Auto 0.3 K/mm3 (0-0.3); Eosinophils Percent Auto 1.7 % (0-4.4); Hematocrit 31.9 % (42.0-52.0); Hemoglobin 10.3 g/dL (14.0-18.0); Immature Granulocyte Absolute 0.23 K/mm3 (0.00-0.031); Immature Granulocyte Percent A 1.3 % (0-0.5); Lymphocytes Absolute Auto 1.41 K/mm3 (0.9-3.2); Lymphocytes Percent Auto 8.2 % (18.3-44.2); Mean Corpuscular HGB Conc 32.3 g/dl (32-36); Mean Corpuscular Volume 99.1 fl (80-100); Mean Platelet Volume 11.5 fl (7.4-10.4); Monocytes Absolute Auto 1.6 K/mm3 (0.1-0.6); Monocytes Percent Auto 9.5 % (2.6-8.5); Neutrophils Absolute Auto 13.6 K/mm3 (1.3-6.7); Platelet Count Result 175 k/mm3 (150-375); Red Blood Count 3.22 M/mm3 (4.6-6.20); Red Cell Distribution Width 14.3 % (11.5-14.5); White Blood Count 17.3 K/mm3 (4.5-10.0)
[2020-02-28] MEDS: ASPIRIN 81 MG ENTERIC TABLET PO (09:10)
[2020-02-28] MEDS: SACCHAROMYCES BOULARDII 250 MG CAPSULE PO (09:10)
[2020-02-28] MEDS: ATORVASTATIN 40 MG TABLET PO (09:10)
[2020-02-28] MEDS: TAMSULOSIN HCL 0.4 MG CAPSULE PO ×2 (09:10→16:36)
[2020-02-28] MEDS: LORATADINE 10 MG TABLET PO (09:10)
[2020-02-28] MEDS: ACIDOPHILUS/BULGARICUS CHEWABLE TABLET 1 TABLET PO (09:10)
[2020-02-28] MEDS: FINASTERIDE 5 MG TABLET PO (09:10)
[2020-02-28] MEDS: DOCUSATE SODIUM 100 MG CAPSULE PO (09:10)
--- NOTE | 2020-02-28 13:05 | PM.IMPN ---
Progress Note: A&P Assessment and Plan (1) Urinary retention: Code(s): R33.9 - Retention of urine, unspecified Status: Acute Assessment and Plan: Patient presents with urinary retention starting on 01/24/2020 after his hemorrhoidectomy 01/20/2020. At that time he was discharged home with a Acosta catheter to follow-up with the [facility]. Ac[facility] catheter removed at [facility] 02/21/2020, patient developed new urinary retention on 02/23/2020. That is his 2nd failed voiding trial at [facility] Appreciate urology recommendations. He wishes to follow with our group now instead of [facility]. Noted plan to keep Acosta in until office follow up for urodynamics. Continue Flomax BID and Proscar has been added. (2) UTI (urinary tract infection): Qualifiers: Hematuria presence: without hematuria Urinary tract infection type: acute cystitis Qualified Code(s): N30.00 - Acute cystitis without hematuria Code(s): N39.0 - Urinary tract infection, site not specified Status: Acute Assessment and Plan: Suspect related to urinary retention vs multiple catheter placements vs. both. UA grossly abnormal and CT demonstrated bladder wall thickening consistent with cystitis. Urine culture growing Pseudomonas. Continue imipenem (day 2). Blood cultures are pending with no growth to date. (3) Sepsis: Qualifiers: Sepsis acute organ dysfunction status: without acute organ dysfunction Sepsis type: sepsis due to unspecified organism Qualified Code(s): A41.9 - Sepsis, unspecified organism Code(s): A41.9 - Sepsis, unspecified organism Status: Acute Assessment and Plan: Criteria met on arrival with leukocytosis and mild tachycardia. Suspected source is urinary, see above. Continue abx, monitor urine output and vital signs. Leukocytosis improving. (4) Diverticulitis: Code(s): K57.92 - Diverticulitis of intestine, part unspecified, without perforation or abscess without bleeding Status: Acute Assessment and Plan: Patient states he had 9 episodes diarrhea 02/25 after using mineral oil to treat constipation. CT demonstrates small area of inflammation near a diverticula that may represent uncomplicated diverticulitis. No abdominal pain, diarrhea improved. Continue flagyl to cover for possible diverticulitis. Stool studies pending and all negative so far. He tells me he recently had C diff from antibiotics, my C diff testing was cancelled yesterday. No diarrhea today. (5) Orthostasis: Code(s): I95.1 - Orthostatic hypotension Status: Acute Assessment and Plan: BPs are improving with IV hydration. May be related to hypovolemia/GI losses. Eating and drinking okay; stop IV fluids and monitor BP. Check orthostatics Q shift. (6) Fall: Qualifiers: Encounter type: initial encounter Qualified Code(s): W19.XXXA - Unspecified fall, initial encounter Code(s): W19.XXXA - Unspecified fall, initial encounter Status: Acute Assessment and Plan: Patient had a fall 02/23 after sitting on commode, suspect secondary to weakness from UTI, retention, orthostasis. PT/OT. (7) Essential hypertension: Code(s): I10 - Essential (primary) hypertension Status: Chronic Assessment and Plan: Home lopressor held secondary to hypotension. Monitor BP and adjust treatment as needed. Subjective Date/time seen: 02/28/20 0830 Interval history: Mr. Hays is a pleasant 84yo M admitted for orthostatic hypotension, UTI, urinary retention, diverticulitis. He thinks he feels a little bit better today overall. Denies chest pain or shortness of breath, no dizziness so far t
[2020-02-29] VITALS (9 sets, daily range): BP systolic 85–123; BP diastolic 54–71; PULSE 40–90; RESP 18–20; TEMP 36.1–36.3; O2SAT 94–100
[2020-02-29] MEDS: metroNIDAZOLE 500 MG/ISO 100ML 500 MG/100 ML BAG 100 MG IVPB ×3 (01:12→17:43)
[2020-02-29 05:59] LABS: Basophils Absolute Auto 0.1 K/mm3 (0.0-0.1); Basophils Percent Auto 0.7 % (0.2-1.2); Eosinophils Absolute Auto 0.3 K/mm3 (0-0.3); Eosinophils Percent Auto 3.3 % (0-4.4); Hematocrit 32.7 % (42.0-52.0); Hemoglobin 10.9 g/dL (14.0-18.0); Immature Granulocyte Absolute 0.31 K/mm3 (0.00-0.031); Immature Granulocyte Percent A 3.2 % (0-0.5); Lymphocytes Absolute Auto 1.33 K/mm3 (0.9-3.2); Lymphocytes Percent Auto 13.7 % (18.3-44.2); Mean Corpuscular HGB Conc 33.3 g/dl (32-36); Mean Corpuscular Hemoglobin 31.3 pg (26-34); Mean Platelet Volume 11.1 fl (7.4-10.4); Monocytes Absolute Auto 1.2 K/mm3 (0.1-0.6); Monocytes Percent Auto 12.3 % (2.6-8.5); Neutrophils Absolute Auto 6.5 K/mm3 (1.3-6.7); Neutrophils Percent Auto 66.8 % (45.5-73.1); Platelet Count Result 222 k/mm3 (150-375); Red Blood Count 3.48 M/mm3 (4.6-6.20); White Blood Count 9.7 K/mm3 (4.5-10.0)
[2020-02-29 06:55] LABS: Vitamin D 25 Hydroxy 40.8 ng/mL
[2020-02-29 07:24] LABS: Folic Acid 18.1 ng/mL (2.76->20)
[2020-02-29] MEDS: LORATADINE 10 MG TABLET PO (08:37)
[2020-02-29] MEDS: ASPIRIN 81 MG ENTERIC TABLET PO (08:37)
[2020-02-29] MEDS: DOCUSATE SODIUM 100 MG CAPSULE PO (08:37)
[2020-02-29] MEDS: CHOLECALCIFEROL 1,000 UNITS TABLET 1000 UNITS PO (08:37)
[2020-02-29] MEDS: ACIDOPHILUS/BULGARICUS CHEWABLE TABLET 1 TABLET PO (08:37)
[2020-02-29] MEDS: FINASTERIDE 5 MG TABLET PO (08:37)
[2020-02-29] MEDS: CYANOCOBALAMIN 250 MCG TABLET PO (08:37)
[2020-02-29] MEDS: ATORVASTATIN 40 MG TABLET PO (08:37)
[2020-02-29] MEDS: TAMSULOSIN HCL 0.4 MG CAPSULE PO ×2 (08:37→16:55)
--- NOTE | 2020-02-29 12:19 | P.PNIM_ITS ---
Progress Note: A&P Assessment and Plan (1) Urinary retention: Code(s): R33.9 - Retention of urine, unspecified Status: Acute Assessment and Plan: * Patient presents with urinary retention starting on 01/24/2020 after his hemorrhoidectomy 01/20/2020. At that time he was discharged home with a Acosta catheter to follow-up with the [place]. Acosta catheter removed at [facility] 02/21/2020, patient developed new urinary retention on 02/23/2020. That is his 2nd failed voiding trial at [facility] * Appreciate urology recommendations. He wishes to follow with our group now instead of [place]. Noted plan to keep Acosta in until office follow up for urodynamics. * Continue Flomax BID and Proscar has been added. (2) UTI (urinary tract infection): Qualifiers: Hematuria presence: without hematuria Urinary tract infection type: acute cystitis Qualified Code(s): N30.00 - Acute cystitis without hematuria Code(s): N39.0 - Urinary tract infection, site not specified Status: Acute Assessment and Plan: * Suspect related to urinary retention vs multiple catheter placements vs. both. UA grossly abnormal and CT demonstrated bladder wall thickening consistent with cystitis. * Urine culture growing Pseudomonas. Continue imipenem (day 3). Blood cultures are pending with no growth to date. (3) Sepsis: Qualifiers: Sepsis type: sepsis due to unspecified organism Sepsis acute organ dysfunction status: without acute organ dysfunction Qualified Code(s): A41.9 - Sepsis, unspecified organism Code(s): A41.9 - Sepsis, unspecified organism Status: Acute Assessment and Plan: * Criteria met on arrival with leukocytosis and mild tachycardia. Suspected source is urinary, see above. * Continue abx, monitor urine output and vital signs. Leukocytosis resolved. (4) Diverticulitis: Code(s): K57.92 - Diverticulitis of intestine, part unspecified, without perforation or abscess without bleeding Status: Acute Assessment and Plan: * Patient states he had 9 episodes diarrhea 02/25 after using mineral oil to treat constipation. CT demonstrates small area of inflammation near a diverticula that may represent uncomplicated diverticulitis. * No abdominal pain, diarrhea improved. * Continue flagyl to cover for possible diverticulitis. Stool studies pending and all negative so far. He tells me he recently had C diff from antibiotics, my C diff testing was cancelled. No diarrhea today. (5) Orthostasis: Code(s): I95.1 - Orthostatic hypotension Status: Acute Assessment and Plan: * BPs initially improved with IV hydration. Still orthostatic this morning s ymptomatic with some dizziness. * May be related to hypovolemia/GI losses. * 500mL bolus this afternoon, add midodrine and continue to monitor orthostatics Q shift. (6) Fall: Qualifiers: Encounter type: initial encounter Qualified Code(s): W19.XXXA - Unspecified fall, initial encounter Code(s): W19.XXXA - Unspecified fall, initial encounter Status: Acute Assessment and Plan: * Patient had a fall 02/23 after sitting on commode, suspect secondary to weakness from UTI, retention, orthostasis. * PT/OT. (7) Essential hypertension: Code(s): I10 - Essential (primary) hypertension Status: Chronic Assessme
--- NOTE | 2020-02-29 12:19 | PM.IMPN ---
Progress Note: A&P Assessment and Plan (1) Urinary retention: Code(s): R33.9 - Retention of urine, unspecified Status: Acute Assessment and Plan: Patient presents with urinary retention starting on 01/24/2020 after his hemorrhoidectomy 01/20/2020. At that time he was discharged home with a Acosta catheter to follow-up with the [facility]. [facility] removed [facility] 02/21/2020, patient developed new urinary retention on 02/23/2020. That is his 2nd failed voiding trial at [facility] Appreciate urology recommendations. He wishes to follow with our group now instead of [facility]. Noted plan to keep Acosta in until office follow up for urodynamics. Continue Flomax BID and Proscar has been added. (2) UTI (urinary tract infection): Qualifiers: Hematuria presence: without hematuria Urinary tract infection type: acute cystitis Qualified Code(s): N30.00 - Acute cystitis without hematuria Code(s): N39.0 - Urinary tract infection, site not specified Status: Acute Assessment and Plan: Suspect related to urinary retention vs multiple catheter placements vs. both. UA grossly abnormal and CT demonstrated bladder wall thickening consistent with cystitis. Urine culture growing Pseudomonas. Continue imipenem (day 3). Blood cultures are pending with no growth to date. (3) Sepsis: Qualifiers: Sepsis type: sepsis due to unspecified organism Sepsis acute organ dysfunction status: without acute organ dysfunction Qualified Code(s): A41.9 - Sepsis, unspecified organism Code(s): A41.9 - Sepsis, unspecified organism Status: Acute Assessment and Plan: Criteria met on arrival with leukocytosis and mild tachycardia. Suspected source is urinary, see above. Continue abx, monitor urine output and vital signs. Leukocytosis resolved. (4) Diverticulitis: Code(s): K57.92 - Diverticulitis of intestine, part unspecified, without perforation or abscess without bleeding Status: Acute Assessment and Plan: Patient states he had 9 episodes diarrhea 02/25 after using mineral oil to treat constipation. CT demonstrates small area of inflammation near a diverticula that may represent uncomplicated diverticulitis. No abdominal pain, diarrhea improved. Continue flagyl to cover for possible diverticulitis. Stool studies pending and all negative so far. He tells me he recently had C diff from antibiotics, my C diff testing was cancelled. No diarrhea today. (5) Orthostasis: Code(s): I95.1 - Orthostatic hypotension Status: Acute Assessment and Plan: BPs initially improved with IV hydration. Still orthostatic this morning symptomatic with some dizziness. May be related to hypovolemia/GI losses. 500mL bolus this afternoon, add midodrine and continue to monitor orthostatics Q shift. (6) Fall: Qualifiers: Encounter type: initial encounter Qualified Code(s): W19.XXXA - Unspecified fall, initial encounter Code(s): W19.XXXA - Unspecified fall, initial encounter Status: Acute Assessment and Plan: Patient had a fall 02/23 after sitting on commode, suspect secondary to weakness from UTI, retention, orthostasis. PT/OT. (7) Essential hypertension: Code(s): I10 - Essential (primary) hypertension Status: Chronic Assessment and Plan: Home lopressor held secondary to hypotension. Monitor BP and adjust treatment as needed. Subjective Date/time seen: 02/29/20 1045 Interval history: Mr. Hays is a pleasant 84yo M admitted for orthostatic hypotension, UTI, urinary retention, diverticulitis. Overall feels weak and tired. Got dizzy this morning
[2020-02-29] MEDS: MIDODRINE HCL 10 MG TABLET PO ×2 (13:32→16:55)
[2020-02-29] MEDS: SODIUM CHLORIDE 0.9% IV 500 ML IV CONT (13:32)
[2020-03-01] VITALS: BP 113/67; PULSE 77; RESP 18; TEMP 36.2; O2SAT 97
[2020-03-01] MEDS: metroNIDAZOLE 500 MG/ISO 100ML 500 MG/100 ML BAG 100 MG IVPB ×3 (01:03→17:44)
[2020-03-01] MEDS: ACETAMINOPHEN 325 MG TABLET 650 MG PO (03:39)
[2020-03-01 04:00] VITALS: BP 108/65; PULSE 74; RESP 20; TEMP 36.3; O2SAT 96
[2020-03-01 06:11] LABS: Basophils Absolute Auto 0.1 K/mm3 (0.0-0.1); Basophils Percent Auto 0.8 % (0.2-1.2); Eosinophils Absolute Auto 0.4 K/mm3 (0-0.3); Eosinophils Percent Auto 3.5 % (0-4.4); Hematocrit 34.5 % (42.0-52.0); Hemoglobin 11.7 g/dL (14.0-18.0); Immature Granulocyte Absolute 0.48 K/mm3 (0.00-0.031); Immature Granulocyte Percent A 4.7 % (0-0.5); Lymphocytes Absolute Auto 1.68 K/mm3 (0.9-3.2); Lymphocytes Percent Auto 16.3 % (18.3-44.2); Mean Corpuscular HGB Conc 33.9 g/dl (32-36); Mean Corpuscular Hemoglobin 32.4 pg (26-34); Mean Corpuscular Volume 95.6 fl (80-100); Mean Platelet Volume 10.7 fl (7.4-10.4); Monocytes Absolute Auto 1.2 K/mm3 (0.1-0.6); Monocytes Percent Auto 11.9 % (2.6-8.5); Neutrophils Absolute Auto 6.5 K/mm3 (1.3-6.7); Neutrophils Percent Auto 62.8 % (45.5-73.1); Platelet Count Result 247 k/mm3 (150-375); Red Blood Count 3.61 M/mm3 (4.6-6.20); Red Cell Distribution Width 14.1 % (11.5-14.5); White Blood Count 10.3 K/mm3 (4.5-10.0)
[2020-03-01 06:40] LABS: Anion Gap 2 mmol/L (8-16); Blood Urea Nitrogen 6 mg/dL (9-20); Calcium 7.6 mg/dL (8.4-10.2); Carbon Dioxide 27 mmol/L (22-30); Chloride 106 mmol/L (98-107); Estimated CRCL calculation 60 ml/min; Estimated Glomerular Filt Rate > 60; Glucose 98 mg/dL (75-110); Magnesium 1.8 mg/dL (1.6-2.3); Potassium 3.3 mmol/L (3.4-5.0); Sodium 135 mmol/L (137-145)
[2020-03-01] MEDS: MIDODRINE HCL 10 MG TABLET PO ×3 (08:26→17:44)
[2020-03-01] MEDS: POTASSIUM CHLORIDE 20 MEQ TABLET 40 MEQ PO (08:27)
[2020-03-01] MEDS: TAMSULOSIN HCL 0.4 MG CAPSULE PO ×2 (08:27→17:44)
[2020-03-01] MEDS: FINASTERIDE 5 MG TABLET PO (08:27)
[2020-03-01] MEDS: DOCUSATE SODIUM 100 MG CAPSULE PO (08:27)
[2020-03-01] MEDS: CYANOCOBALAMIN 250 MCG TABLET PO (08:27)
[2020-03-01] MEDS: ACIDOPHILUS/BULGARICUS CHEWABLE TABLET 1 TABLET PO (08:27)
[2020-03-01] MEDS: CHOLECALCIFEROL 1,000 UNITS TABLET 1000 UNITS PO (08:27)
[2020-03-01] MEDS: MAGNESIUM OXIDE 200 MG TABLET PO ×2 (08:27→20:08)
[2020-03-01] MEDS: ATORVASTATIN 40 MG TABLET PO (08:28)
[2020-03-01] MEDS: ASPIRIN 81 MG ENTERIC TABLET PO (08:28)
[2020-03-01] MEDS: LORATADINE 10 MG TABLET PO (08:28)
[2020-03-01 10:00] VITALS: BP 114/72; BP 81/53; BP 90/57
[2020-03-01 14:00] VITALS: BP 109/64; PULSE 92; RESP 20; TEMP 36.6; O2SAT 96
--- NOTE | 2020-03-01 15:00 | P.PNIM_ITS ---
Progress Note: A&P Assessment and Plan (1) Orthostasis: Code(s): I95.1 - Orthostatic hypotension Status: Acute Assessment and Plan: * BPs initially improved with IV hydration. Still orthostatic this morning symp tomatic with some dizziness. * May be related to hypovolemia/GI losses. Midodrine added yesterday, continue to monitor orthostatics Q shift. (2) Urinary retention: Code(s): R33.9 - Retention of urine, unspecified Status: Acute Assessment and Plan: * Patient presents with urinary retention starting on 01/24/2020 after his hemorrhoidectomy 01/20/2020. At that time he was discharged home with a Acosta catheter to follow-up with the [facility]. Acosta catheter removed at [facility] 02/21/2020, patient developed new urinary retention on 02/23/2020. That is his 2nd failed voiding trial at [facility]. * Appreciate urology recommendations. He wishes to follow with our group now instead of [facility]. Noted plan to keep Acosta in until office follow up for urodynamics. * Continue Flomax BID and Proscar has been added. (3) UTI (urinary tract infection): Qualifiers: Hematuria presence: without hematuria Urinary tract infection type: acute cystitis Qualified Code(s): N30.00 - Acute cystitis without hematuria Code(s): N39.0 - Urinary tract infection, site not specified Status: Acute Assessment and Plan: * Suspect related to urinary retention vs multiple catheter placements vs. both. UA grossly abnormal and CT demonstrated bladder wall thickening consistent with cystitis. * Urine culture growing Pseudomonas. Continue imipenem (day 4). Blood cultures are pending with no growth to date. (4) Sepsis: Qualifiers: Sepsis type: sepsis due to unspecified organism Sepsis acute organ dysfunction status: without acute organ dysfunction Qualified Code(s): A41.9 - Sepsis, unspecified organism Code(s): A41.9 - Sepsis, unspecified organism Status: Acute Assessment and Plan: * Criteria met on arrival with leukocytosis and mild tachycardia, improved. Suspected source is urinary, see above. * Continue abx, monitor urine output and vital signs. (5) Diverticulitis: Code(s): K57.92 - Diverticulitis of intestine, part unspecified, without perforation or abscess without bleeding Status: Acute Assessment and Plan: * Patient states he had 9 episodes diarrhea 02/25 after using mineral oil to treat constipation. CT demonstrates small area of inflammation near a diverticula that may represent uncomplicated diverticulitis. * No abdominal pain, diarrhea improved. * Continue flagyl to cover for possible diverticulitis. Stool studies negative. (6) Fall: Qualifiers: Encounter type: initial encounter Qualified Code(s): W19.XXXA - Unspecified fall, initial encounter Code(s): W19.XXXA - Unspecified fall, initial encounter Status: Acute Assessment and Plan: * Patient had a fall 02/23 after sitting on commode, suspect secondary to weakness from UTI, retention, orthostasis. * PT/OT. (7) Essential hypertension: Code(s): I10 - Essential (primary) hypertension Status: Chronic Assessment and Plan: * Home lopressor held secondary to hypotension. Monitor BP and adjust treatment as needed.
--- NOTE | 2020-03-01 15:00 | PM.IMPN ---
Progress Note: A&P Assessment and Plan (1) Orthostasis: Code(s): I95.1 - Orthostatic hypotension Status: Acute Assessment and Plan: BPs initially improved with IV hydration. Still orthostatic this morning symptomatic with some dizziness. May be related to hypovolemia/GI losses. Midodrine added yesterday, continue to monitor orthostatics Q shift. (2) Urinary retention: Code(s): R33.9 - Retention of urine, unspecified Status: Acute Assessment and Plan: Patient presents with urinary retention starting on 01/24/2020 after his hemorrhoidectomy 01/20/2020. At that time he was discharged home with a Acosta catheter to follow-up with the [facility]. Acosta catheter removed at [facility] 02/21/2020, patient developed new urinary retention on 02/23/2020. That is his 2nd failed voiding trial at [facility]. Appreciate urology recommendations. He wishes to follow with our group now instead of [facility]. Noted plan to keep Acosta in until office follow up for urodynamics. Continue Flomax BID and Proscar has been added. (3) UTI (urinary tract infection): Qualifiers: Hematuria presence: without hematuria Urinary tract infection type: acute cystitis Qualified Code(s): N30.00 - Acute cystitis without hematuria Code(s): N39.0 - Urinary tract infection, site not specified Status: Acute Assessment and Plan: Suspect related to urinary retention vs multiple catheter placements vs. both. UA grossly abnormal and CT demonstrated bladder wall thickening consistent with cystitis. Urine culture growing Pseudomonas. Continue imipenem (day 4). Blood cultures are pending with no growth to date. (4) Sepsis: Qualifiers: Sepsis type: sepsis due to unspecified organism Sepsis acute organ dysfunction status: without acute organ dysfunction Qualified Code(s): A41.9 - Sepsis, unspecified organism Code(s): A41.9 - Sepsis, unspecified organism Status: Acute Assessment and Plan: Criteria met on arrival with leukocytosis and mild tachycardia, improved. Suspected source is urinary, see above. Continue abx, monitor urine output and vital signs. (5) Diverticulitis: Code(s): K57.92 - Diverticulitis of intestine, part unspecified, without perforation or abscess without bleeding Status: Acute Assessment and Plan: Patient states he had 9 episodes diarrhea 02/25 after using mineral oil to treat constipation. CT demonstrates small area of inflammation near a diverticula that may represent uncomplicated diverticulitis. No abdominal pain, diarrhea improved. Continue flagyl to cover for possible diverticulitis. Stool studies negative. (6) Fall: Qualifiers: Encounter type: initial encounter Qualified Code(s): W19.XXXA - Unspecified fall, initial encounter Code(s): W19.XXXA - Unspecified fall, initial encounter Status: Acute Assessment and Plan: Patient had a fall 02/23 after sitting on commode, suspect secondary to weakness from UTI, retention, orthostasis. PT/OT. (7) Essential hypertension: Code(s): I10 - Essential (primary) hypertension Status: Chronic Assessment and Plan: Home lopressor held secondary to hypotension. Monitor BP and adjust treatment as needed. Subjective Date/time seen: 03/01/20 15:00 Interval history: Mr. Hays is a pleasant 84yo M admitted for orthostatic hypotension, UTI, urinary retention, diverticulitis. Overall he feels weak and fatigued. He describes still feeling some dizziness with standing this morning. Denies chest pain or shortness of breath. Tolerated some breakfast without nausea or vomiting. Jamal sommer
[2020-03-01 22:00] VITALS: BP 113/64; PULSE 80; RESP 16; TEMP 36.4; O2SAT 98
[2020-03-02] MEDS: metroNIDAZOLE 500 MG/ISO 100ML 500 MG/100 ML BAG 100 MG IVPB ×2 (01:08→09:22)
[2020-03-02 05:59] LABS: Anion Gap 4 mmol/L (8-16); Blood Urea Nitrogen 8 mg/dL (9-20); Calcium 7.8 mg/dL (8.4-10.2); Carbon Dioxide 29 mmol/L (22-30); Chloride 104 mmol/L (98-107); Estimated CRCL calculation 60 ml/min; Estimated Glomerular Filt Rate > 60; Glucose 100 mg/dL (75-110); Potassium 3.7 mmol/L (3.4-5.0); Sodium 137 mmol/L (137-145)
[2020-03-02 06:00] VITALS: BP 117/67; PULSE 80; RESP 16; TEMP 36.3; O2SAT 95
[2020-03-02 06:29] VITALS: BP 106/69; BP 99/62
[2020-03-02] MEDS: MAGNESIUM OXIDE 200 MG TABLET PO (08:20)
[2020-03-02] MEDS: ATORVASTATIN 40 MG TABLET PO (08:20)
[2020-03-02] MEDS: CYANOCOBALAMIN 250 MCG TABLET PO (08:20)
[2020-03-02] MEDS: FINASTERIDE 5 MG TABLET PO (08:20)
[2020-03-02] MEDS: CHOLECALCIFEROL 1,000 UNITS TABLET 1000 UNITS PO (08:20)
[2020-03-02] MEDS: DOCUSATE SODIUM 100 MG CAPSULE PO (08:20)
[2020-03-02] MEDS: ACIDOPHILUS/BULGARICUS CHEWABLE TABLET 1 TABLET PO (08:20)
[2020-03-02] MEDS: LORATADINE 10 MG TABLET PO (08:20)
[2020-03-02] MEDS: ASPIRIN 81 MG ENTERIC TABLET PO (08:20)
[2020-03-02] MEDS: MIDODRINE HCL 10 MG TABLET PO ×2 (08:21→13:14)
[2020-03-02] MEDS: TAMSULOSIN HCL 0.4 MG CAPSULE PO (08:21)
[2020-03-02 08:28] VITALS: PULSE 80; RESP 16; O2SAT 95
--- NOTE | 2020-03-02 11:48 | PM.DS ---
DS: Admitting Diagnosis Admitting Diagnosis Admitting Diagnosis: UTI DS: Discharge Diagnosis Discharge Diagnosis (1) Orthostasis: Code(s): I95.1 - Orthostatic hypotension Status: Acute Assessment and Plan: Date of Admission 02/26/20 Date of Discharge/DOS 03/02/20 Mr. Hays is a pleasant 84yo M who presented to the ED for evaluation of dizziness and weakness, experienced a ground level fall getting off the toilet at home. Here he was found to have symptomatic orthostatic hypotension which likely contributed to his symptoms. He has had issues with urinary retention as detailed below, following a hemorrhoidectomy surgery weeks ago. He was seen by urology here and Acosta catheter was placed. He was found to have pseudomonas UTI and was treated with 5 days of IV imipenem and discharged with oral ciprofloxacin to complete the course. He was also noted to have some colonic wall thickening on CT concerning for diverticulitis, recently had diarrhea prior to arrival which resolved during his stay; he was treated with flagyl to cover for possible diverticulitis. His orthostasis improved some with IV fluids but still persisted, thus he was started on midodrine and his home metoprolol was held. Overall he was clinically improved and hemodynamically stable for discharge 03/02/20 with instructions to follow up with his PCP at the [facility] as well as urology for outpatient urodynamic studies. May be related to hypovolemia/GI losses. Midodrine added, BPs low but improved. (2) Urinary retention: Code(s): R33.9 - Retention of urine, unspecified Status: Acute Assessment and Plan: Patient presents with urinary retention starting on 01/24/2020 after his hemorrhoidectomy 01/20/2020. At that time he was discharged home with a Acosta catheter to follow-up with the [facility]. Acosta catheter removed at [facility] 02/21/2020, patient developed new urinary retention on 02/23/2020. That is his 2nd failed voiding trial at [facility]. Appreciate urology recommendations. He wishes to follow with our group now instead of [facility]. Noted plan to keep Acosta in until office follow up for urodynamics. Continue Flomax BID and Proscar has been added. (3) UTI (urinary tract infection): Qualifiers: Hematuria presence: without hematuria Urinary tract infection type: acute cystitis Qualified Code(s): N30.00 - Acute cystitis without hematuria Code(s): N39.0 - Urinary tract infection, site not specified Status: Acute Assessment and Plan: Suspect related to urinary retention vs multiple catheter placements vs. both. UA grossly abnormal and CT demonstrated bladder wall thickening consistent with cystitis. Urine culture growing Pseudomonas. Received imipenem (day 5), discharge with oral cipro to complete 14 days total. (4) Sepsis: Qualifiers: Sepsis type: sepsis due to unspecified organism Sepsis acute organ dysfunction status: without acute organ dysfunction Qualified Code(s): A41.9 - Sepsis, unspecified organism Code(s): A41.9 - Sepsis, unspecified organism Status: Acute Assessment and Plan: Criteria met on arrival with leukocytosis and mild tachycardia, improved. Suspected source is urinary, see above. (5) Diverticulitis: Code(s): K57.92 - Diverticulitis of intestine, part unspecified, without perforation or abscess without bleeding Status: Acute Assessment and Plan: Patient states he had 9 episodes diarrhea 02/25 after using mineral oil to treat constipation. CT demonstrates small area of inflammation near a diverticula that may represent uncomplicated diverticulitis. No abdominal pain, diarrhea improved. Received flagyl to cover for possible diverticulitis. Stool studies negative.
--- NOTE | 2020-03-04 09:57 | PC.NURSE ---
Blood cx are normal
== END 2020-03-02 14:40 | disposition home or self-care (01) | DRG 872 ==
LOC: ANHED 02-26 00:40 → ANH2MED 02-26 01:59
PROVIDERS: Physician Assistant; Admitting Provider Student in an Organized Health Care Education/Training Program; Emergency Provider Emergency Medicine; Visit Provider Family Medicine
DX: A41.9 Sepsis, unspecified organism (principal); N30.00 Acute cystitis without hematuria; K57.92 Diverticulitis of intestine, part unspecified, without perforation or abscess without bleeding; B96.5 Pseudomonas (aeruginosa) (mallei) (pseudomallei) as the cause of diseases classified elsewhere; R33.9 Retention of urine, unspecified; W18.11XA Fall from or off toilet without subsequent striking against object, initial encounter; I10 Essential (primary) hypertension; E78.5 Hyperlipidemia, unspecified; Z79.899 Other long term (current) drug therapy; Z87.891 Personal history of nicotine dependence; Z97.8 Presence of other specified devices; Z98.890 Other specified postprocedural states
CPT/HCPCS: 36415; 74177; 80048; 80053; 81001; 82306; 82607; 82746; 83605; 83735; 85025; 85027; 87015; 87040; 87045; 87046; 87077; 87086; 87088; 87186; 87269; 87272; 87427; 96361; 96365; 96366; 96367; 96375; 97110; 97116; 97161; 97165; 97530; 97535; 99285; A9270; G0378; J0696; J0743; J2405; J7030; J7040; Q9967

== ENCOUNTER 2020-07-10 12:22 | Emergency (ER) | payer MEDICARE, OTHER, SELFPAY ==
--- NOTE | ~2020-07-10 | CT_ITS ---
EXAMINATION: CT brain wo con EXAM DATE: 07/10/2020 14:52 INDICATION: Dizziness started yesterday. TECHNIQUE: Spiral CT of the head was performed without contrast. Axial, coronal and sagittal images were reviewed. The dose-length product (DLP) for this examination was 605.33 mGy-cm. The exposure w as tailored according to patient size, and iterative reconstruction (ASIR) was used as additional dos e reduction technique. Comparison is made to prior examination from 07/04/2008. FINDINGS: There is no acute intraparenchymal hemorrhage. No evidence of intraparenchymal brain mass lesion. No evidence of acute infarction. Please note that initial head CT has limited sensitivity f or small or acute infarctions. There is mild periventricular and subcortical hypodensity, nonspecific but probably related to small vessel ischemic disease. There is moderate prominence of the sulci a nd ventricles related to cerebral atrophy. There is intracranial carotid arteriosclerosis. There a re no extra-axial collections. There is no mass effect or midline shift. The orbits are unremarkabl e. Soft tissue is unremarkable. The visualized sinuses and mastoid air cells are well aerated. IMPRESSION: 1. No acute intracranial findings. 2. Chronic age related findings. Reviewed, dictated and finalized at location A.
--- NOTE | ~2020-07-10 | XR_ITS ---
EXAMINATION: XR chest 2V EXAM DATE: 07/10/2020 14:21 INDICATION: Dizziness. TECHNIQUE: Frontal and lateral projections of the chest obtained and reviewed. Comparison is made to prior examination from 03/05/2009. FINDINGS: Interval sternotomy and cardiac valve replacements. Mild cardiomegaly. Large cardial fat pa d on the left. No confluent consolidation, pneumothorax or pleural effusion suspected. There are bony degenerative changes. IMPRESSION: 1. Mild cardiomegaly. Reviewed, dictated and finalized at location A. IMPRESSION: 1. Mild cardiomegaly.
--- NOTE | 2020-07-10 12:23 | ECG_ITS ---
Measurements Intervals [place] Rate: 78 P: 60 NV: 223 QRS: -9 QRSD: 79 T: 46 QT: 360 QTc: 412 Interpretive Statements SINUS RHYTHM WITH FIRST DEGREE AV BLOCK VENTRICULAR PREMATURE COMPLEX LOW VOLTAGE- DIFFUSE LEADS ANTEROSEPTAL INFARCT, AGE INDETERMINATE ABNORMAL ECG Electronically Signed On 07-10-2020 14:35:58 CDT by Kodak Loo D.O.
[2020-07-10 12:24] VITALS: BP 140/85; PULSE 107; RESP 20; TEMP 36.6; O2SAT 98
[2020-07-10 12:38] LABS: Basophils Absolute Auto 0.1 K/mm3 (0.0-0.1); Basophils Percent Auto 0.7 % (0.2-1.2); Eosinophils Absolute Auto 0.1 K/mm3 (0-0.3); Eosinophils Percent Auto 1.1 % (0-4.4); Hematocrit 45.8 % (42.0-52.0); Hemoglobin 15.1 g/dL (14.0-18.0); Immature Granulocyte Absolute 0.04 K/mm3 (0.00-0.031); Immature Granulocyte Percent A 0.4 % (0-0.5); Lymphocytes Absolute Auto 1.69 K/mm3 (0.9-3.2); Mean Corpuscular Hemoglobin 31.9 pg (26-34); Mean Corpuscular Volume 96.6 fl (80-100); Mean Platelet Volume 10.7 fl (7.4-10.4); Monocytes Absolute Auto 0.7 K/mm3 (0.1-0.6); Monocytes Percent Auto 7.4 % (2.6-8.5); Neutrophils Absolute Auto 6.4 K/mm3 (1.3-6.7); Neutrophils Percent Auto 71.4 % (45.5-73.1); Platelet Count Result 208 k/mm3 (150-375); Red Blood Count 4.74 M/mm3 (4.6-6.20); Red Cell Distribution Width 13.3 % (11.5-14.5); White Blood Count 8.9 K/mm3 (4.5-10.0)
[2020-07-10 12:48] LABS: Anion Gap 3 mmol/L (8-16); Blood Urea Nitrogen 9 mg/dL (9-20); Calcium 9.7 mg/dL (8.4-10.2); Carbon Dioxide 30 mmol/L (22-30); Chloride 102 mmol/L (98-107); Estimated CRCL calculation 49 ml/min; Estimated Glomerular Filt Rate > 60; Glucose 114 mg/dL (75-110); Potassium 4.9 mmol/L (3.4-5.0); Sodium 135 mmol/L (137-145)
[2020-07-10 13:29] VITALS: BP 106/74; PULSE 74
[2020-07-10 13:30] VITALS: BP 101/72; PULSE 75
[2020-07-10 13:32] VITALS: BP 103/74; PULSE 78
--- NOTE | 2020-07-10 14:48 | ED.DIZZY ---
HPI - Dizziness General Chief Complaint: Dizziness Stated Complaint: loc, dizzy Time Seen by Provider: 07/10/20 13:54 Source: patient Mode of arrival: wheelchair Limitations: no limitations History of Present Illness HPI Narrative: This is a 84 year old male that presents to the ER for lightheadedness since yesterday. Reports he feels unsteady when he walks. Denies fever, chest pain, shortness of breath, cough, vomiting, dysuria, weakness or numbness. Related Data Home Medications Medication Instructions Recorded Confirmed Lactobacillus acidophilus 10 mg PO DAILY 02/28/19 02/26/20 atorvastatin 40 mg tablet 40 mg PO DAILY 02/28/19 02/26/20 docusate sodium 100 mg capsule 100 mg PO DAILY 02/28/19 02/26/20 triamcinolone acetonide 0.025 % 1 applic TOPICAL DAILY 02/28/19 02/26/20 topical cream witch gaston 50 % topical pads 1 pad TOPICAL BID PRN 02/28/19 02/26/20 aspirin 81 mg PO DAILY 02/26/20 02/26/20 loratadine 10 mg PO DAILY 02/26/20 02/26/20 metoprolol tartrate 12.5 mg PO BID 02/26/20 02/26/20 Allergies Allergy/AdvReac Type Severity Reaction Status Date / Time simvastatin Allergy Unknown Unknown Verified 02/26/20 06:29 Review of Systems Review of Systems: Narrative: CONSTITUTIONAL: Denies fever EYES: Denies visual changes CARDIOVASCULAR: Denies chest pain, or edema. RESPIRATORY: Denies cough or dyspnea. GASTROINTESTINAL: Denies abdominal pain, nausea, vomiting GENITOURINARY: Denies dysuria NEUROLOGIC: Reports headache. Denies numbness, or weakness. 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 HEAD: Normocephalic, atraumatic. EYES: PERRLA and EOMI. ENT: Nares clear, no rhinorrhea or epistaxis. Mucous membranes moist. Oropharynx without tonsillar hypertrophy exudate or other lesions. Bilateral TMs pearly lucero non-bulging NECK: Supple. No adenopathy or masses. CHEST: Clear to auscultation. No respiratory distress. No wheezes rales or rhonchi HEART: Regular rate and rhythm. No murmur heard. Normal peripheral pulses. ABDOMEN: Soft, nontender, nondistended, normal active bowel sounds. EXTREMITIES: Normal range of motion. No edema. Strength equal in bilateral upper and lower extremities (5/5) SKIN: Warm, dry, no rash. NEURO: No focal deficits. Alert and oriented x3. Cranial nerves II through XII grossly intact. Normal [id number] PSYCH: Normal mood and affect Course Vital Signs Vital signs: Vital Signs Temperature 97.9 F 07/10/20 12:24 Pulse Rate 107 H 07/10/20 12:24 Respiratory Rate 20 07/10/20 12:24 Blood Pressure 140/85 07/10/20 12:24 Pulse Oximetry 98 07/10/20 12:24 Temperature 97.9 F 07/10/20 12:24 Pulse Rate 72 07/10/20 15:44 Respiratory Rate 20 07/10/20 15:44 Blood Pressure 128/74 07/10/20 15:44 Pulse Oximetry 95 07/10/20 15:44 MDM - Dizziness MDM Narrative Medical decision making narrative: Patient presents the emergency department for lightheadedness since y
[2020-07-10] MEDS: SODIUM CHLORIDE 0.9% IV 500 ML 999 ML IV CONT (15:02)
[2020-07-10] MEDS: ONDANSETRON INJ 4 MG/2 ML VIAL IV PUSH (15:02)
[2020-07-10] MEDS: MECLIZINE HCL 25 MG TABLET PO (15:02)
[2020-07-10 15:35] LABS: Add Urine Microscopic? NO; Appearance Urine Clear (Clear); Bilirubin Urine Negative (Negative); Blood Urine Negative (Negative); Color Urine Straw (Yellow); Glucose Urine UA Negative (Negative); Ketones Urine Negative (Negative); Leukocyte Esterase Ur Negative LEU/UL (Negative); Nitrate Urine Negative (Negative); Protein Urine Negative (Negative); Urobilinogen Urine Negative mg/dL (<2.0)
[2020-07-10 15:44] VITALS: BP 128/74; PULSE 72; RESP 20; O2SAT 95
[2020-07-10 15:57] LABS: Specific Grav Ur 1.004 (1.001-1.035)
== END 2020-07-10 17:38 | disposition home or self-care (01) ==
PROVIDERS: Emergency Medicine; Physician Assistant; Emergency Provider Emergency Medicine
DX: R42 Dizziness and giddiness (principal); H60.502 Unspecified acute noninfective otitis externa, left ear; I10 Essential (primary) hypertension; E78.5 Hyperlipidemia, unspecified; Z87.891 Personal history of nicotine dependence; Z79.82 Long term (current) use of aspirin; I51.7 Cardiomegaly; I44.0 Atrioventricular block, first degree; I49.3 Ventricular premature depolarization; R94.31 Abnormal electrocardiogram [ECG] [EKG]
CPT/HCPCS: 36415; 70450; 71046; 80048; 81003; 85025; 93005; 96361; 96374; 96375; 99284; A9270; J0131; J2405; J7040

== ENCOUNTER 2022-08-07 14:28 | Emergency (ER) | payer MEDICARE, OTHER, SELFPAY ==
[2022-08-07 14:42] VITALS: BP 144/77; PULSE 94; RESP 12; TEMP 37.2; O2SAT 97
--- NOTE | 2022-08-07 15:34 | ED.GENADULT ---
HPI - General Adult General Chief complaint: Extremity Injury, Lower Stated complaint: Right Hip/Leg Pain Source: patient Mode of arrival: ambulatory Limitations: no limitations History of Present Illness HPI narrative: Patient presents for evaluation of right lower back pain with radiation down the right lower extremity. Symptom onset 3-4 days ago after lifting some car batteries. He states his current symptoms are similar to those that he experienced on the contralateral side with sciatic up. States the pain is constant, shooting, 9 out of 10 in severity. He has chronic peripheral neuropathy for which he takes gabapentin. Denies any saddle anesthesia, bladder/ bowel incontinence. Related Data Home Medications Medication Instructions Recorded Confirmed Lactobacillus acidophilus 10 mg PO DAILY 02/28/19 08/07/22 (Acidophilus capsule) atorvastatin 40 mg tablet 40 mg PO DAILY 02/28/19 08/07/22 docusate sodium 100 mg capsule 100 mg PO DAILY 02/28/19 08/07/22 triamcinolone acetonide 0.025 % 1 applic topical DAILY 02/28/19 08/07/22 topical cream witch gaston 50 % topical pads 1 pad topical BID PRN Hemorrhoids 02/28/19 08/07/22 (Hemorrhoidal (witch gaston)) aspirin 81 mg tablet 81 mg PO DAILY 02/26/20 08/07/22 loratadine 10 mg capsule 10 mg PO DAILY 02/26/20 08/07/22 metoprolol tartrate 25 mg tablet 12.5 mg PO BID 02/26/20 08/07/22 Allergies Allergy/AdvReac Type Severity Reaction Status Date / Time simvastatin Allergy Unknown Unknown Verified 08/07/22 14:38 Review of Systems Review of Systems: CONSTITUTIONAL: Denies fever, chills, or sweats. EYES: Denies visual changes, redness, or discharge. ENT: Denies rhinorrhea, congestion, sore throat, or otalgia. CARDIOVASCULAR: Denies chest pain, palpitations, or edema. RESPIRATORY: Denies cough or dyspnea. GASTROINTESTINAL: Denies abdominal pain, nausea, vomiting, or diarrhea. GENITOURINARY: Denies dysuria or hematuria. SKIN: Denies rash or itching. MUSCULOSKELETAL: Reports right lower back pain with radiation to the right lower extremity NEUROLOGIC: Reports chronic peripheral neuropathy in BLE, unchanged from baseline. Denies headache or dizziness PSYCHIATRIC: Denies anxiety or depression. 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 HEAD: Normocephalic, atraumatic. EYES: PERRLA and EOMI. ENT: Nares clear, no rhinorrhea or epistaxis. Mucous membranes moist. Oropharynx without tonsillar hypertrophy exudate or other lesions. Bilateral TMs pearly lucero nonbulging NECK: Supple. No adenopathy or masses. No carotid bruits or JVD CHEST: Clear to auscultation. No respiratory distress. No wheezes rales or rhonchi HEART: Regular rate and rhythm. No murmur heard. Normal peripheral pulses. ABDOMEN: Soft, nontender, nondistended, normal active bowel sounds. EXTREMITIES: Normal range of palak
== END 2022-08-07 15:15 | disposition home or self-care (01) ==
PROVIDERS: Emergency Provider Nurse Practitioner
DX: M54.31 Sciatica, right side (principal); Z87.891 Personal history of nicotine dependence; I10 Essential (primary) hypertension; E78.5 Hyperlipidemia, unspecified; Z79.82 Long term (current) use of aspirin
CPT/HCPCS: 99213; G0463

== ENCOUNTER 2023-07-16 11:49 | Emergency (ER) | payer MEDICARE, OTHER, SELFPAY ==
[2023-07-16 12:00] VITALS: BP 143/85; PULSE 92; RESP 16; TEMP 36.9; O2SAT 98
--- NOTE | 2023-07-16 12:03 | ED.URI ---
HPI - URI/Sore Throat General Chief Complaint: Upper Respiratory Infection Stated Complaint: Difficulty Swallowing Time Seen by Provider: 07/16/23 12:03 Source: patient, RN notes reviewed and old records reviewed Mode of arrival: ambulatory Limitations: no limitations History of Present Illness HPI Narrative: 87-year-old male presents to the [facility] with complaints trouble swallowing, discomfort in his throat after cutting weeds on Monday, 2 days ago. Denies shortness of breath. Denies any chest pain. He is able to swallow 1 pill at a time instead of his normal handful. Able to maintain own saliva. Patient in no acute distress Onset (ago): day(s) (2) Treatments prior to arrival: cold medicine Related Data Home Medications Medication Instructions Recorded Confirmed Lactobacillus acidophilus 10 mg PO DAILY 02/28/19 07/16/23 (Acidophilus capsule) atorvastatin 40 mg tablet 40 mg PO DAILY 02/28/19 07/16/23 aspirin 81 mg tablet 81 mg PO DAILY 02/26/20 07/16/23 loratadine 10 mg capsule 10 mg PO DAILY 02/26/20 07/16/23 gabapentin 300 mg capsule 300 mg PO HS 07/16/23 07/16/23 Allergies Allergy/AdvReac Type Severity Reaction Status Date / Time simvastatin Allergy Unknown Unknown Verified 07/16/23 11:50 Review of Systems Review of Systems: All systems reviewed & are unremarkable except as noted in HPI and below Constitutional: Constitutional: Reports no additional constitutional complaints Eyes: Eyes: Reports no additional eye complaints ENT: Reports as per HPI Cardiovascular: Cardiovascular: Reports no additional cardiovascular complaints, Denies chest pain and Denies dyspnea Respiratory: Respiratory: Reports no additional respiratory complaints, Denies chest congestion, Denies cough and Denies dyspnea Gastrointestinal: Gastrointestinal: Reports no additional gastrointestinal complaints, Denies abdominal pain, Denies nausea and Denies vomiting Musculoskeletal: Musculoskeletal: Reports no additional musculoskeletal complaints Integumentary/Breasts: Skin/Breast: Reports system reviewed and no additional complaints, except as docu Neurologic: Reports system reviewed and no additional complaints, except as documented Psychiatric: Psychiatric: Reports no additional psychiatric complaints Allergic/Immunologic: Allergic/Immunologic: Reports no additional allergic/immunologic complaints PMFSH Past Medical History Medical History Essential hypertension Grade III internal hemorrhoids Hyperlipidemia Sciatica Seasonal allergies Surgical History Surgical History H/O hemorrhoidectomy Hx of mitral valve repair Family History Family History Other Cerebrovascular accident Diabetes mellitus Social History Social History Social History: Army , 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 There is no relevant family history pertinent to the patient complaint. Exam Const: General: cooperative, healthy appearing, comfortable, no acute distress, well developed, alert and well nourished Nutritional Appearance: well nourished Orientation/consciousness: patient oriented x3 Limitations: no limitations HENMT: Head: normal to inspection Ears: hearing grossly normal bilaterall
[2023-07-16 12:06] VITALS: BP 143/85; PULSE 92; RESP 16; TEMP 36.9; O2SAT 98
== END 2023-07-16 12:35 | disposition home or self-care (01) ==
PROVIDERS: Emergency Provider Nurse Practitioner
DX: J02.9 Acute pharyngitis, unspecified (principal); Z87.891 Personal history of nicotine dependence; I10 Essential (primary) hypertension; E78.5 Hyperlipidemia, unspecified; Z79.82 Long term (current) use of aspirin
CPT/HCPCS: 99213; G0463

== ENCOUNTER 2024-01-25 10:34 | Emergency (ER) | payer MEDICARE, OTHER, SELFPAY ==
--- NOTE | 2024-01-25 10:46 | ECG_ITS ---
Test Date: 2024-01-25 10:50:14 Measurements Intervals [place] Rate: 91 P: -9 RI: 230 QRS: -36 QRSD: 87 T: 16 QT: 330 QTc: 408 Interpretive Statements SINUS RHYTHM WITH FIRST DEGREE AV BLOCK LEFT AXIS DEVIATION POSSIBLE ANTERIOR MYOCARDIAL INFARCTION, AGE INDETERMINATE BASELINE ARTIFACT- I, II, III, AVR, AVL, AVF, V1 ABNORMAL ECG No previous ECG available for comparison Electronically Signed On 01-25-2024 12:01:14 [employer] by [employer] Loo D.O.
--- NOTE | 2024-01-25 10:46 | ED.GENADULT ---
HPI - General Adult General Chief complaint: Weakness Stated complaint: Weakness/Dizziness/Weight Loss Time Seen by Provider: 01/25/24 10:46 Source: patient, RN notes reviewed and old records reviewed Mode of arrival: ambulatory Limitations: no limitations History of Present Illness HPI narrative: 88-year-old male presents to the [facility] with generalized weakness, dizziness, weight loss. States the dizziness and weakness have been going on since the , 3days. Patient reports that anything he picks off he feels very weak. Weight loss he is unsure of time frame. Patient states that his has been in the hospital. States that he called his primary was instructed to be evaluated. Patient states sitting still dizziness is not that bad, changing position sick gets worse. Denies any chest pain shortness of breath. Onset (ago): day(s) (3) Treatments prior to arrival: none Related Data Home Medications Medication Instructions Recorded Confirmed Lactobacillus acidophilus 10 mg PO DAILY 02/28/19 01/25/24 (Acidophilus capsule) atorvastatin 40 mg tablet 40 mg PO DAILY 02/28/19 01/25/24 aspirin 81 mg tablet 81 mg PO DAILY 02/26/20 01/25/24 loratadine 10 mg capsule 10 mg PO DAILY 02/26/20 01/25/24 gabapentin 300 mg capsule 300 mg PO HS 07/16/23 01/25/24 Allergies Allergy/AdvReac Type Severity Reaction Status Date / Time simvastatin Allergy Unknown Unknown Verified 01/25/24 10:36 Review of Systems Review of Systems: All systems reviewed & are unremarkable except as noted in HPI and below Constitutional: Constitutional: Reports as per HPI, Reports fatigue, Reports lethargy and Reports weakness ENT: Reports system reviewed and no additional complaints, except as documented Cardiovascular: Cardiovascular: Reports no additional cardiovascular complaints, Denies chest pain and Denies dyspnea Respiratory: Respiratory: Reports no additional respiratory complaints, Denies chest congestion, Denies cough and Denies dyspnea Gastrointestinal: Gastrointestinal: Reports no additional gastrointestinal complaints, Denies abdominal pain, Denies nausea and Denies vomiting Musculoskeletal: Musculoskeletal: Reports as per HPI Integumentary/Breasts: Skin/Breast: Reports system reviewed and no additional complaints, except as docu Neurologic: Reports as per HPI, Denies Abnormal speech present, Reports dizziness and Denies headache(s) PMFSH Past Medical History Medical History Essential hypertension Grade III internal hemorrhoids Hyperlipidemia Sciatica Seasonal allergies Surgical History Surgical History H/O hemorrhoidectomy Hx of mitral valve repair Family History Family History Other Cerebrovascular accident Diabetes mellitus Social History Social History Social History: Army , 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 There is no relevant family history pertinent to the patient complaint. Exam Const: General: cooperative, comfortable, no acute distress, well developed, alert and well nourished Nutritional Appearance: well nourished and No edematous Orientation/consciousness: patient oriented x3 Limitations: no limitations HENMT: Head: normal to inspection Ears: hearing grossly normal bilaterally, external ears normal, TM's normal bilaterally, EAC's normal, mastoids normal and no periauricular adenopathy Face/Nose/Sinus: Normal external nose present, normal facial exam and face symmetric Face and sinus: normal facial exam and face symmetric Mouth: Yes Normal oral and palatal mucosa present, Yes lip normal and Yes tongue normal Throat: posterior oropharynx normal, uvula midline and no uvular edema Eyes: General: appearance normal, both eyes and all related structures Alignment and Position: alignment normal Periorbital: periorbital findings normal Neck: Neck: normal visual inspection, full ROM, no lymphadenopathy and no meningeal signs Chest: Chest palpation & inspection: normal inspection of the chest Resp: Effort & Inspection: normal respiratory effort and able to speak in complete sentences Auscultation: clear to auscultation bilaterally, no crackles, no rales, no rhonchi and no wheezes Cardio: Rate: regular rate Skin: General skin exam: normal color, no rashes or lesions noted and dry skin Lesions: no lesions Rashes: no rashes Wounds: no wounds Neuro: General: patient oriented x3, tone normal, moves all extremities, no meningeal signs, no focal motor deficits and other (walks with a cane) Cognition (Neuro): normal cognition Speech: normal speech Extrem: General: normal to inspection, full ROM and capillary refill normal Psych: Appearance: grossly normal and well kempt Mental Status: mental status grossly normal Speech and movement: Normal speech and movement present and Clear speech present Affect: normal affect Attitude: cooperative Course Course Level of Care: Express Care Visit Vital Signs Vital signs: Vital Signs Temperature 98.6 F 01/25/24 10:51 Pulse Rate 92 01/25/24 10:51 Respiratory Rate 18 01/25/24 10:51 Blood Pressure 138/78 01/25/24 10:51 Pulse Oximetry 96 01/25/24 10:51 Oxygen Delivery Room Air 01/25/24 10:51 Temperature 98.6 F 01/25/24 10:51 Pulse Rate 92 01/25/24 10:51 Respiratory Rate 18 01/25/24 10:51 Blood Pressure 138/78 01/25/24 10:51 Pulse Oximetry 96 01/25/24 10:51 Oxygen Delivery Room Air 01/25/24 10:51 Reviewed Transfer Transfered to: [facility] (Per patient request) Transportation: Other (POV, patient request, daughter stated she will drive) Transfer rationale: Patient with 30 lb weight loss, fatigue, generalized weakness, dizziness, 88 years old sending for further evaluation, testing Accepting physician: Dr. Rubi Medical Decision Making [facility] Narrative Medical decision making narrative: Patient sitting comfortably in exam room. Nontoxic, vitals stable. Patient in no acute distress Patient presents with symptoms of generalized weakness, dizziness, weight loss EKG with no acute findings. Offered flu and COVID testing which patient declined Unable to do further evaluation other than an EKG patient is referred to the ER for further evaluation Transfer instructions reviewed with patient and his daughter. Advised to go to the emergency room for further testing All questions have been answered, and the patient deny any further questions. Some parts of this dictation were generated by voice recognition software and may contain typographical and/or grammatical inaccuracies. Differential Diagnosis Differential Diagnosis: Electrolyte imbalance, DC, heart failure, stroke, pneumonia, vertigo Medical Records Medical records reviewed: Yes I reviewed the external patient's medical records. Vital Signs Vital Signs: Vital Signs Temperature 98.6 F 01/25/24 10:51 Pulse Rate 92 01/25/24 10:51 Respiratory Rate 18 01/25/24 10:51 Blood Pressure 138/78 01/25/24 10:51 Pulse Oximetry 96 01/25/24 10:51 Oxygen Delivery Room Air 01/25/24 10:51 Temperature 98.6 F 01/25/24 10:51 Pulse Rate 92 01/25/24 10:51 Respiratory Rate 18 01/25/24 10:51 Blood Pressure 138/78 01/25/24 10:51 Pulse Oximetry 96 01/25/24 10:51 Oxygen Delivery Room Air 01/25/24 10:51 Reviewed Lab Data Lab results reviewed: Yes I reviewed the patient's lab results. Labs: Reviewed ECG Data EKG #1: Attestation: I personally reviewed and interpreted this ECG as follows: ECG completion date: 01/25/24 ECG completion time: 10:50 Interpretation: Sinus rhythm with 1st degree AV block. Abnormal EKG, ventricular rate of 91, NE interval 230, QRS duration [address] elevation a depression noted. Critical Care Time Critical Care Time Critical Care Time: No Discharge Plan Discharge Clinical Impression: Dizziness, Abnormal weight loss, Generalized weakness Patient Disposition: Acute Care Hospital Condition: Stable Prescriptions: No Action gabapentin 300 mg Capsule 300 mg PO HS atorvastatin 40 mg tablet 40 mg PO DAILY Lactobacillus acidophilus [Acidophilus] Capsule 10 mg PO DAILY loratadine 10 mg Capsule 10 mg PO DAILY aspirin 81 mg Tablet 81 mg PO DAILY finasteride [Proscar] 5 mg Tablet 5 mg PO QAM 30 Days Qty: 30 6RF tamsulosin [Flomax] 0.4 mg capsule 0.4 mg PO BID 30 Days Qty: 60 0RF Follow-up/Referrals: [facility] [Primary Care Provider] -
[2024-01-25 10:51] VITALS: BP 138/78; PULSE 92; RESP 18; TEMP 37; O2SAT 96
== END 2024-01-25 11:10 | disposition short-term general hospital (02) ==
LOC: EXPCOLL 10:36
PROVIDERS: Emergency Provider Nurse Practitioner
DX: R42 Dizziness and giddiness (principal); R63.4 Abnormal weight loss; Z68.25 Body mass index [BMI] 25.0-25.9, adult; R53.1 Weakness; I10 Essential (primary) hypertension; E78.5 Hyperlipidemia, unspecified; Z87.891 Personal history of nicotine dependence; Z79.82 Long term (current) use of aspirin; Z79.899 Other long term (current) drug therapy
CPT/HCPCS: 93005; 99212; G0463

== ENCOUNTER 2024-01-25 12:29 | Observation (INO) | payer MEDICARE, OTHER, SELFPAY ==
[2024-01-25] VITALS (30 sets, daily range): BP systolic 119–148; BP diastolic 75–94; PULSE 73–111; RESP 12–20; TEMP 36.6; O2SAT 95–100
--- NOTE | ~2024-01-25 | CT_ITS ---
CTA brain carotid Ordering provider: oRhan Nevarez MD History: . Dizziness, difficulty ambulating . Comparison: 03/07/2009 Technique: CT angiogram head and neck was performed following timed intravenous injection of contrast . Thin slice axial images and reformatted coronal images were obtained. Three dimensional reformatted images of the brain were also obtained using a [employer] workstation. DLP: [id number] (4 05/17/2005 and 37);? mGy-cm FINDINGS: HEAD: --ANTERIOR AND MIDDLE CEREBRAL ARTERIES AND BRANCHES: Normal caliber and contour. --INTERNAL CAROTID ARTERIES: Mild atheromatous disease but no significant stenosis. No occlusion. --BASILAR ARTERY AND BRANCHES: Normal caliber and contour. No atheromatous disease. --POSTERIOR CEREBRAL ARTERIES: Normal caliber and contour --POSTERIOR COMMUNICATING ARTERIES: Not visualized which is probably related dimension. Congenital ab sence or small size. --ANEURYSM: None visualized. BRAIN: The ventricles are normal in size, shape and position. Decreased attenuation is identified within the periventricular white matter, likely secondary to micr ovascular ischemic disease, in a patient of this age. There is no mass, mass effect or midline shift. There is no abnormal extra-axial fluid collection or intracranial hemorrhage. Visualized paranasal sinuses are clear. The mastoid air cells are well aerated. No acute displaced fractures within the overlying cranium. NECK: --RIGHT CERVICAL CAROTID SYSTEM: Mild atheromatous disease of the carotid bulb and proximal internal carotid artery without significant stenosis. Percent stenosis per NASCET criteria is 0% No carotid d issection. Otherwise, no significant atheromatous disease or stenosis of the cervical carotid system. --LEFT CERVICAL CAROTID SYSTEM: Mild atheromatous disease of the carotid bulb and proximal internal c arotid artery without significant stenosis. Percent stenosis per NASCET criteria is 0% No carotid di ssection. Otherwise, no significant atheromatous disease or stenosis of the cervical carotid system. --VERTEBRAL ARTERIES: The vertebral arteries are right dominant. Normal caliber and contour. --VISUALIZED AORTIC ARCH AND BRANCHING VESSELS: Mild atheromatous disease but no significant stenosis . --SOFT TISSUES: Unremarkable. --CERVICAL SPINE: Age appropriate degenerative changes. IMPRESSION: 1. Unremarkable CTA head and neck. Percent stenosis per NASCET criteria is 0% Reviewed, dictated and finalized at location A. [employer]DER [employer]
--- NOTE | ~2024-01-25 | XR_ITS ---
Clinical Indication: Weakness PA and lateral views of the chest: Comparison: 07/10/2020 Findings: The lungs are clear, without evidence of focal consolidation or pleural effusion. Cardiome diastinal silhouette is stable, status post mitral valve replacement. Bones and soft tissues are unre markable. Impression: Clear lungs. Status post mitral valve replacement. Reviewed, dictated and finalized at location . MACHINE FEEDER Impression: Clear lungs. Status post mitral valve replacement.
--- NOTE | ~2024-01-25 | MR_ITS ---
EXAMINATION: MR brain/brain stem wo/w con DATE: 01/26/2024 10:02 INDICATION: Weakness. TECHNIQUE: Magnetic resonance imaging (MRI) of the brain and brainstem was performed without and with 15 mL MultiHance intravenous contrast. COMPARISON: Brain MRI 02/10/2016, head CT 01/25/2024 FINDINGS: There are scattered areas of nonspecific increased T2-weighted signal intensity in the cere bral white matter and palomo. There is a small old infarct in left cerebellum. There are small old infa rcts in the bilateral thalami and left basal ganglia. There is no intracranial hemorrhage, acute infa rction, or abnormal intracranial mass lesion. The ventricles are normal in size. There is mucosal thi ckening in the paranasal sinuses. There are likely changes of ocular lens replacement surgeries. The mastoid air cells are normal. . IMPRESSION: 1. 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 2. Moderate nonspecific cerebral white matter disease and pontine disease, which likely represents ch ronic small vessel ischemic disease. Reviewed, dictated and finalized at location A. PT SUPERVISOR IMPRESSION: 1. Old infarcts in the left cerebellum, bilateral thalami, and left basal gangl ia. 2. Moderate nonspecific cerebral white matter disease and pontine disease, whic h likely represents chronic small vessel ischemic disease.
--- NOTE | 2024-01-25 12:59 | ECG_ITS ---
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
--- NOTE | 2024-01-25 13:01 | ED_ITS ---
HPI - Weakness General Chief complaint: Weakness <Mirian Alvarez PA-C - Last Filed: 01/25/24 13:06> Stated complaint: weakness <Mirian Alvarez PA-C - Last Filed: 01/25/24 13:06> Time Seen by Provider: 01/25/24 19:11 <Mirian Alvarez PA-C - Last Filed: 01/25/24 13:06> Focused HPI: 88 yo/o M with a hx of MVP and s/p MVP repair in 2004, hyperlipidemia , CVA presents to the emergency department for generalized weakness and lightheadedness for several weeks, worsening over the past couple of days. Patient states he feels lightheaded when he goes from a sitting to standing position. Denies cough, congestion, chest pain or shortness of breath, abdominal pain, N/V/D, dysuria, melena or hematochezia. Patient is tearful in triage and states he has been very stressed out because his was recently d iagnosed with pancreatic cancer and CVA. GENERAL: Well-appearing, well-nourished, and in no acute distress. HEAD: Normocephalic, atraumatic. CHEST: Clear to auscultation. ?No respiratory distress. HEART: Regular rate and rhythm.? NEURO: ?Alert and oriented x3. Patient screened in triage and initial orders placed.? ?Additional care and disposition to be based upon?diagnostic testing and treatment. <Mirian Alvarez PA-C - Last Filed: 01/25/24 13:06> History of Present Illness HPI Narrative: 8-year-old gentleman who presents emergency department with chief complaint of lightheadedness and weakness the patient states that for a while he has been getting worse per reports over the last week he has been getting much worse patient reports he has been getting lightheaded reports that he has had unsteadiness in his gait does report that his was recently diagnosed with pancreatic cancer has also had a stroke. The patient was seen in urgent care and sent to the emergency department for further evaluation <Rohan Nevarez MD - Last Filed: 01/25/24 22:00> Related Data Home medications: Home Medications Medication Instructions Recorded Confirmed Lactobacillus acidophilus 10 mg PO DAILY 02/28/19 01/25/24 (Acidophilus capsule) atorvastatin 40 mg tablet 40 mg PO DAILY 02/28/19 01/25/24 aspirin 81 mg tablet 81 mg PO DAILY 02/26/20 01/25/24 loratadine 10 mg capsule 10 mg PO DAILY 02/26/20 01/25/24 gabapentin 300 mg capsule 300 mg PO HS 07/16/23 01/25/24 <Mirian Alvarez PA-C - Last Filed: 01/25/24 13:06> Allergies/Adverse reactions: Allergies Allergy/AdvReac Type Severity Reaction Status Date / Time simvastatin Allergy Unknown Unknown Verified 01/25/24 10:36 <Mirian Alvarez PA-C - Last Filed: 01/25/24 13:06> Review of Systems Review of Systems: A 10 system review of systems was completed on the patient and is negative except for what is stated in the HPI. Nursing and ancillary documentation was reviewed. <Rohan Nevarez MD - Last Filed: 01/25/24 22:00> [facility] [place] Past Medical History Medical History: Medical History Essential hypertension Grade III internal hemorrhoids Hyperlipidemia Sciatica Seasonal allergies <Mirian Alvarez PA-C - Last Filed: 01/25/24 13:06> Surgical History Surgical History: Surgical History H/O hemorrhoidectomy Hx of mitral valve repair <Mirian Alvarez PA-C - Last Filed: 01/25/24 13:06> Family History Family History: Family History Other Cerebrovascular accident Diabetes mellitus <Mirian Alvarez PA-C - Last Filed: 01/25/24 13:06> Social History Social History: Social History Social History: [employer] , 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 HEAD: Normocephalic, atraumatic. EYES: PERRLA and EOMI. ENT: Nares clear, no rhinorrhea or epistaxis. Mucous membranes moist. NECK: Supple. CHEST: Clear to auscultation. No respiratory distress. HEART: Regular rate and rhythm. No murmur heard. Normal peripheral pulses. ABDOMEN: Soft, nontender, nondistended, normal active bowel sounds. EXTREMITIES: Normal range of motion. No edema. SKIN: Warm, dry, no rash. NEURO: No focal deficits. Alert and oriented x3. PSYCH: Normal mood and affect. <Rohan Nevarez MD - Last Filed: 01/25/24 22:00> Course Course Emergency Course: differential diagnosis includes CVA, electrolyte abnormality, pneumonia, upper respiratory infection chest x-ray showed no focal infiltrate COVID flu RSV are negative urinalysis was negative electrolytes are within normal limits cbc normal limits CTA neck showed no acute abnormality <Rohan Nevarez MD - Last Filed: 01/25/24 22:00> Vital Signs Vital signs: Vital Signs Temperature 36.6 C 01/25/24 12:37 Pulse Rate 111 H 01/25/24 12:37 Respiratory Rate 20 01/25/24 12:37 Blood Pressure 120/80 01/25/24 12:37 Pulse Oximetry 99 01/25/24 12:37 Oxygen Delivery Room Air 01/25/24 12:37 Temperature 36.6 C 01/25/24 17:21 Pulse Rate 92 01/25/24 19:59 Respiratory Rate 14 01/25/24 19:53 Blood Pressure 127/91 H 01/25/24 19:59 Pulse Oximetry 98 01/25/24 19:53 Oxygen Delivery Room Air 01/25/24 19:11 <Mirian Alvarez PA-C - Last Filed: 01/25/24 13:06> Vital Signs Temperature 36.6 C 01/25/24 12:37 Pulse Rate 111 H 01/25/24 12:37 Respiratory Rate 20 01/25/24 12:37 Blood Pressure 120/80 01/25/24 12:37 Pulse Oximetry 99 01/25/24 12:37 Oxygen Delivery Room Air 01/25/24 12:37 Temperature 36.6 C 01/25/24 17:21 Pulse Rate 92 01/25/24 19:59 Respiratory Rate 14 01/25/24 19:53 Blood Pressure 127/91 H 01/25/24 19:59 Pulse Oximetry 98 01/25/24 19:53 Oxygen Delivery Room Air 01/25/24 19:11 <Rohan Nevarez MD - Last Filed: 01/25/24 22:00> MDM - Weakness Lab Data Result diagrams: 01/25/24 14:50 01/25/24 14:50 <Mirian Alvarez PA-C - Last Filed: 01/25/24 13:06> Labs: Lab Results 01/25/24 01/25/24 Range/Units 14:50 14:58 WBC 8.7 (4.5-10.0) K/mm3 RBC 4.26 L (4.6-6.20) M/mm3 Hgb 14.2 (14.0-18.0) g/dL Hct 41.7 L (42.0-52.0) % MCV 97.9 (80-100) fl MCH 33.3 (26-34) pg MCHC 34.1 (32-36) g/dl RDW 13.5 (11.5-14.5) % Plt Count 222 (150-375) k/mm3 MPV 11.2 H (7.4-10.4) fl Immature Gran % (Auto) 0.3 (0-0.5) % Neut % (Auto) 70.9 (45.5-73.1) % Lymph % (Auto) 15.9 L (18.3-44.2) % [place] % (Auto) 10.1 H (2.6-8.5) % Eos % (Auto) 1.6 (0-4.4) % Baso % (Auto) 1.2 (0.2-1.2) % Lymph # (Auto) 1.38 (0.9-3.2) K/mm3 [place] # (Auto) 0.9 H (0.1-0.6) K/mm3 Eos # (Auto) 0.1 (0-0.3) K/mm3 Baso # (Auto) 0.1 (0.0-0.1) K/mm3 Abs Immat Gran (auto) 0.03 (0.00-0.031) K/mm3 Absolute Neuts (auto) 6.1 (1.3-6.7) K/mm3 Absolute Nucleated RBC 0.000 (0.0-0.012) K/mm3 Nucleated RBC % 0.0 (0.0-0.2) % Sodium 132 L (137-145) mmol/L Potassium 4.0 (3.4-5.0) mmol/L Chloride 98 (98-107) mmol/L Carbon Dioxide 27 (22-30) mmol/L Anion Gap 7 (4-12) mmol/L BUN 6 L (9-20) mg/dL Creatinine 0.90 (0.7-1.3) mg/dL Estim Creat Clear Calc 50 ml/min Estimated GFR > 60 (59 - ) Glucose 79 (65-110) mg/dL Calcium 9.5 (8.4-10.2) mg/dL Total Bilirubin 0.5 (0.2-1.3) mg/dL AST 31 (17-59) U/L ALT 18 (6-50) U/L Alkaline Phosphatase 64 (38-126) U/L Troponin I < 0.012 (0.000-0.034) ng/mL NT-Pro-B Natriuret Pep 163 H (19.9-100) pg/mL Total Protein 8.0 (6.3-8.2) g/dL Albumin 4.3 (3.5-5.1) g/dL Urine Color Yellow (Yellow) Urine Appearance Clear (Clear) Urine pH 6.5 (5.0-9.0) Ur Specific [place] 1.005 (1.001-1.035) Urine Protein Negative (Negative) mg/dL Urine Glucose (UA) Negative (Negative) mg/dL Urine Ketones Negative (Negative) mg/dL Ur Blood (Man) Negative (Negative) Urine Nitrate Negative (Negative) Urine Bilirubin Negative (Negative) Urine Urobilinogen 0.2 (<2.0) mg/dL Leukocyte Esterase Rfl Negative (Negative) JEFFREY/UL Influenza A (RT-PCR) Negative (Negative) Influenza B (RT-PCR) Negative (Negative) RSV (RT-PCR) Negative (Negative) SARS-CoV-2 RNA (RT-PCR) Negative (Negative) <Mirian Alvarez PA-C - Last Filed: 01/25/24 13:06> Lab Results 01/25/24 01/25/24 Range/Units 14:50 14:58 WBC 8.7 (4.5-10.0) K/mm3 RBC 4.26 L (4.6-6.20) M/mm3 Hgb 14.2 (14.0-18.0) g/dL Hct 41.7 L (42.0-52.0) % MCV 97.9 (80-100) fl MCH 33.3 (26-34) pg MCHC 34.1 (32-36) g/dl RDW 13.5 (11.5-14.5) % Plt Count 222 (150-375) k/mm3 MPV 11.2 H (7.4-10.4) fl Immature Gran % (Auto) 0.3 (0-0.5) % Neut % (Auto) 70.9 (45.5-73.1) % Lymph % (Auto) 15.9 L (18.3-44.2) % [place] % (Auto) 10.1 H (2.6-8.5) % Eos % (Auto) 1.6 (0-4.4) % Baso % (Auto) 1.2 (0.2-1.2) % Lymph # (Auto) 1.38 (0.9-3.2) K/mm3 [place] # (Auto) 0.9 H (0.1-0.6) K/mm3 Eos # (Auto) 0.1 (0-0.3) K/mm3 Baso # (Auto) 0.1 (0.0-0.1) K/mm3 Abs Immat Gran (auto) 0.03 (0.00-0.031) K/mm3 Absolute Neuts (auto) 6.1 (1.3-6.7) K/mm3 Absolute Nucleated RBC 0.000 (0.0-0.012) K/mm3 Nucleated RBC % 0.0 (0.0-0.2) % Sodium 132 L (137-145) mmol/L Potassium 4.0 (3.4-5.0) mmol/L Chloride 98 (98-107) mmol/L Carbon Dioxide 27 (22-30) mmol/L Anion Gap 7 (4-12) mmol/L BUN 6 L (9-20) mg/dL Creatinine 0.90 (0.7-1.3) mg/dL Estim Creat Clear Calc 50 ml/min Estimated GFR > 60 (59 - ) Glucose 79 (65-110) mg/dL Calcium 9.5 (8.4-10.2) mg/dL Total Bilirubin 0.5 (0.2-1.3) mg/dL AST 31 (17-59) U/L ALT 18 (6-50) U/L Alkaline Phosphatase 64 (38-126) U/L Troponin I < 0.012 (0.000-0.034) ng/mL NT-Pro-B Natriuret Pep 163 H (19.9-100) pg/mL Total Protein 8.0 (6.3-8.2) g/dL Albumin 4.3 (3.5-5.1) g/dL Urine Color Yellow (Yellow) Urine Appearance Clear (Clear) Urine pH 6.5 (5.0-9.0) Ur Specific [place] 1.005 (1.001-1.035) Urine Protein Negative (Negative) mg/dL Urine Glucose (UA) Negative (Negative) mg/dL Urine Ketones Negative (Negative) mg/dL Ur Blood (Man) Negative (Negative) Urine Nitrate Negative (Negative) Urine Bilirubin Negative (Negative) Urine Urobilinogen 0.2 (<2.0) mg/dL Leukocyte Esterase Rfl Negative (Negative) JEFFREY/UL Influenza A (RT-PCR) Negative (Negative) Influenza B (RT-PCR) Negative (Negative) RSV (RT-PCR) Negative (Negative) SARS-CoV-2 RNA (RT-PCR) Negative (Negative) <Rohan Nevarez MD - Last Filed: 01/25/24 22:00> Discharge Plan Discharge Clinical Impression: Dizziness <Mirian Alvarez PA-C - Last Filed: 01/25/24 13:06> Patient Disposition: Still a Patient <Mirian Alvarez PA-C - Last Filed: 01/25/24 13:06> Condition: Stable <Mirian Alvarez PA-C - Last Filed: 01/25/24 13:06> Prescriptions: No Action gabapentin 300 mg Capsule 300 mg PO HS atorvastatin 40 mg tablet 40 mg PO DAILY Lactobacillus acidophilus [Acidophilus] Capsule 10 mg PO DAILY loratadine 10 mg Capsule 10 mg PO DAILY aspirin 81 mg Tablet 81 mg PO DAILY finasteride [Proscar] 5 mg Tablet 5 mg PO QAM 30 Days Qty: 30 6RF tamsulosin [Flomax] 0.4 mg capsule 0.4 mg PO BID 30 Days Qty: 60 0RF <Mirian Alvarez PA-C - Last Filed: 01/25/24 13:06> Follow-up/Referrals: [facility] [Primary Care Provider] - <Mirian Alvarez PA-C - Last Filed: 01/25/24 13:06> Time of Disposition: 21:58 <Mirian Alvarez PA-C - Last Filed: 01/25/24 13:06> 21:58 <Rohan Nevarez MD - Last Filed: 01/25/24 22:00>
[2024-01-25 15:13] LABS: Basophils Absolute Auto 0.1 K/mm3 (0.0-0.1); Basophils Percent Auto 1.2 % (0.2-1.2); Eosinophils Absolute Auto 0.1 K/mm3 (0-0.3); Eosinophils Percent Auto 1.6 % (0-4.4); Hematocrit 41.7 % (42.0-52.0); Hemoglobin 14.2 g/dL (14.0-18.0); Immature Granulocyte Absolute 0.03 K/mm3 (0.00-0.031); Immature Granulocyte Percent A 0.3 % (0-0.5); Lymphocytes Absolute Auto 1.38 K/mm3 (0.9-3.2); Lymphocytes Percent Auto 15.9 % (18.3-44.2); Mean Corpuscular HGB Conc 34.1 g/dl (32-36); Mean Corpuscular Hemoglobin 33.3 pg (26-34); Mean Corpuscular Volume 97.9 fl (80-100); Mean Platelet Volume 11.2 fl (7.4-10.4); Monocytes Absolute Auto 0.9 K/mm3 (0.1-0.6); Monocytes Percent Auto 10.1 % (2.6-8.5); Neutrophils Absolute Auto 6.1 K/mm3 (1.3-6.7); Neutrophils Percent Auto 70.9 % (45.5-73.1); Platelet Count Result 222 k/mm3 (150-375); Red Blood Count 4.26 M/mm3 (4.6-6.20); Red Cell Distribution Width 13.5 % (11.5-14.5); White Blood Count 8.7 K/mm3 (4.5-10.0)
[2024-01-25 15:15] LABS: Add Urine Microscopic? NO; Appearance Urine Clear (Clear); Bilirubin Urine Negative (Negative); Blood Urine Negative (Negative); Color Urine Yellow (Yellow); Glucose Urine UA Negative (Negative); Ketones Urine Negative (Negative); Leukocyte Esterase Ur Negative LEU/UL (Negative); Nitrate Urine Negative (Negative); Protein Urine Negative (Negative); Specific Grav Ur 1.005 (1.001-1.035); Urobilinogen Urine 0.2 mg/dL (<2.0); pH Urine 6.5 (5.0-9.0)
[2024-01-25 15:23] LABS: Alanine Aminotransferase 18 U/L (6-50); Albumin Level 4.3 g/dL (3.5-5.1); Alkaline Phosphatase 64 U/L (38-126); Anion Gap 7 mmol/L (4-12); Aspartate Amino Transferase 31 U/L (17-59); Bilirubin,Total 0.5 mg/dL (0.2-1.3); Blood Urea Nitrogen 6 mg/dL (9-20); Calcium 9.5 mg/dL (8.4-10.2); Carbon Dioxide 27 mmol/L (22-30); Chloride 98 mmol/L (98-107); Estimated CRCL calculation 50 ml/min; Estimated Glomerular Filt Rate > 60; Glucose 79 mg/dL (65-110); Sodium 132 mmol/L (137-145)
[2024-01-25 15:35] LABS: NT Pro B Type Natriuretic Pept 163 pg/mL (19.9-100); Troponin I < 0.012 ng/mL (0.000-0.034)
[2024-01-25 15:50] LABS: Influenza A QL RT-PCR Negative (Negative); Influenza B QL RT-PCR Negative (Negative); RSV RNA, RT-PCR Negative (Negative); SARS-CoV-2 RNA PCR Negative (Negative)
[2024-01-25] MEDS: ACETAMINOPHEN 325 MG TABLET 650 MG PO (19:51)
[2024-01-26] VITALS (15 sets, daily range): BP systolic 110–133; BP diastolic 60–89; PULSE 65–105; RESP 16–20; TEMP 36.2–36.8; O2SAT 94–99; BMI 21.5
--- NOTE | 2024-01-26 00:33 | ECHO_ITS ---
Patient Info Name: Herb Hays Age: 88 years : 1935 Gender: Male Ht: 68 in Wt: 141 lbs BSA: 1.75 m2 HR: 85 bpm BP: 110 / 79 mmHg Heart Rhythm: Sinus Rhythm Technical Quality: Fair Exam Date: 01/26/2024 3:21 PM Exam Location: Echo Lab Patient Status: Outpatient Admit Date: 01/25/2024 Staff Ordering Physician: Regina Loaiza PA-C Hydraulic Riveter: Jana Darden RDCS Attending Provider: Clover Drake MD Referring Physician: Fadia DIAZ; Exam Type: CA echo doppler color flow Study Info Indications - vertigo Complete two-dimensional, color flow and Doppler transthoracic echocardiogram is performed. Summary 1. Complete two-dimensional, color flow and Doppler transthoracic echocardiogram is performed. 2. Left ventricular chamber dimension is normal. 3. Left ventricular systolic function is normal, estimated at 60-65%. 4. The left ventricular diastolic function is grade I diastolic dysfunction. 5. E/e' 21 is elevated. 6. Left atrial chamber dimension is mildly enlarged. 7. There is mild aortic valve sclerosis. 8. The mitral valve has moderate calcified leaflets and mild calcified annulus. History of mitral valve repair. 9. No pulmonary hypertension, estimated pulmonary arterial systolic pressure is 22 mmHg. 10. The aortic root size at the sinus of Valsalva is mildly dilated at 4.3 cm. Left Ventricle E/e' 21 is elevated. Left ventricular chamber dimension is normal. Left ventricular systolic function is normal, estimated at 60-65%. The left ventricular diastolic function is grade I diastolic dysfunction. Right Ventricle Right ventricular systolic function is normal and with normal TAPSE 1.8 cm. Right ventricular chamber dimension is normal. Left Atria Left atrial chamber dimension is mildly enlarged. Right Atria Right atrial chamber dimension is normal. Aortic Valve The aortic valve is trileaflet. There is mild aortic valve sclerosis. There is no aortic valve stenosis. There is no aortic valve regurgitation. Pulmonic Valve There is no pulmonic regurgitation. Mitral Valve The mitral valve has moderate calcified leaflets and mild calcified annulus. History of mitral valve repair. There is no mitral valve stenosis. There is no mitral valve regurgitation. Tricuspid Valve There is no tricuspid valve regurgitation. No pulmonary hypertension, estimated pulmonary arterial systolic pressure is 22 mmHg. Pericardium/Pleural There is no pericardial effusion. Inferior Vena Cava Normal inferior vena cava with >50% collapse upon inspiration consistent with normal right atrial pressure, 5 mmHg. Aorta The aortic root size at the sinus of Valsalva is mildly dilated at 4.3 cm. Left Ventricular Outflow Tract Name Value Normal LVOT 2D LVOT Diameter 2.5 cm LVOT Doppler LVOT Peak Gradient 2 mmHg LVOT Mean Gradient 1 mmHg LVOT VTI 14 cm LVOT VTI/AV VTI Ratio 0.8 LVOT Stroke Volume 68 ml LVOT CO 5.5 l/min LVOT CI 3.1 l/min/m2 Pulmonic Valve Name Value Normal RVOT Doppler RVOT Peak Gradient 2 mmHg PV Doppler PV Peak Gradient 4 mmHg Mitral Valve Name Value Normal MV Doppler MV Decel [place] 617 cm/s2 MV PHT 50 ms MV Area (PHT) 4.4 cm2 4.0-5.0 MV Diastolic Function MV E Peak Velocity 105 cm/s MV A Peak Velocity 150 cm/s MV E/A 0.7 MV Decel Time 171 ms MV Annular TDI MV E/e' (Septal) 28.8 <=8.0 MV E/e' (Lateral) 17.1 <=8.0 MV E/e' (Average) 22.9 Tricuspid Valve Name Value Normal TV Regurgitation Doppler TR Peak Velocity 206 cm/s TR Peak Gradient 17 mmHg Estimated PAP/RSVP RA Pressure 5 mmHg <=5 PA Systolic Pressure 22 mmHg <36 RV Systolic Pressure 22 mmHg <36 Aorta Name Value Normal Ascending Aorta Ao Root Diameter (MM) 3.9 cm Ao Root Diam Index (MM) 2.2 cm/m2 Aortic Valve Name Value Normal AV Doppler AV Peak Velocity 128 cm/s AV Peak Gradient 7 mmHg AV Mean Gradient 3 mmHg AV VTI 18 cm AV Area (Cont Eq VTI) 3.8 cm2 >=3.0 AV Area (Cont Eq Pavel) 2.9 cm2 AV Regurgitation 2D LVOT Area 4.8 cm2 Ventricles Name Value Normal LV Dimensions 2D/MM IVS Diastolic Thickness (2D) 0.9 cm 0.6-1.0 LVID Diastole (2D) 4.7 cm 4.2-5.8 LVIW Diastolic Thickness (2D) 0.9 cm 0.6-1.0 LVID Systole (2D) 3.2 cm 2.5-4.0 LVOT Diameter 2.5 cm LV Mass (2D Cubed) 145.94 g 88.00-224.00 LV Mass Index (2D Cubed) 83 g/m2 49-115 Relative Wall Thickness (2D) 0.40 LV Fractional Shortening/Ejection Fraction 2D/MM LV Fractional Shortening (2D) 33 % 25-43 LV EF (2D Teicholz) 61 % 52-72 LV Diastolic Volume (4C MOD) 54 ml LV EF (4C MOD) 66 % LV Diastolic Volume (2C MOD) 52 ml LV EF (2C MOD) 68 % LV Diastolic Volume (BP MOD) 53 ml 62-150 LV Diastolic Volume Index (BP MOD) 30 ml/m2 34-74 LV Systolic Volume (BP MOD) 18 ml 21-61 LV Systolic Volume Index (BP MOD) 10 ml/m2 11-31 LV EF (BP MOD) 67 % 52-72 LV Diastolic Length (4C) 7.9 cm LV Systolic Length (4C) 6.8 cm LV Stroke Volume (4C MOD) 36 ml Atria Name Value Normal LA Dimensions LA Dimension (MM) 4.4 cm 3.0-4.1 LA Volume (4C A-L) 47 ml LA Volume (BP A-L) 48 ml RA Dimensions RA Area (4C) 11.5 cm2 <=18.0 Report Signatures
--- NOTE | 2024-01-26 00:37 | ADMGEN ---
This patient, Herb Hays, was admitted to [facility] Surg Room 332-02. Patient/family oriented to hospital policies and general routines including ID bracelet, bed and alarms, visiting hours, pain management, procedures, bathroom and other care routines, personal items, smoking policy, room service/diet, and visiting hours. Information on how to activate the Rapid Response Team has been discussed. Patient/Family are encouraged to report perceived risks to care and to ask questions if they do not understand what they are told or what they should do.
[2024-01-26 06:47] LABS: Anion Gap 2 mmol/L (4-12); Blood Urea Nitrogen 10 mg/dL (9-20); Calcium 8.8 mg/dL (8.4-10.2); Carbon Dioxide 29 mmol/L (22-30); Chloride 103 mmol/L (98-107); Estimated CRCL calculation 47 ml/min; Estimated Glomerular Filt Rate > 60; Glucose 99 mg/dL (65-110); Magnesium 1.9 mg/dL (1.6-2.3); Sodium 134 mmol/L (137-145)
--- NOTE | 2024-01-26 09:35 | PC.NURSE ---
Patient off of unit to MRI
[2024-01-26] MEDS: LORATADINE 10 MG TABLET PO (11:35)
[2024-01-26] MEDS: FINASTERIDE 5 MG TABLET PO (11:35)
[2024-01-26] MEDS: ASPIRIN 81 MG ENTERIC TABLET PO (11:35)
[2024-01-26] MEDS: TAMSULOSIN HCL 0.4 MG CAPSULE PO (11:35)
--- NOTE | 2024-01-26 12:19 | PM.IMPN ---
Progress Note: A&P Assessment and Plan (1) Dizziness: Code(s): R42 - Dizziness and giddiness Status: Acute (2) Gait instability: Code(s): R26.81 - Unsteadiness on feet Status: Acute Plan Near syncope patient noted he has been feeling woozy the past couple of months ortho static vital signs ECHO pending PT/OT Gait instability MRI brain no acute changes CT head and CTA head and neck unremarkable B12 608 PT/OT neurology consulted Failure to thrive patient noted that he has lost 20-30 lbs the past few months Dietitian consulted however ate lunch at the time of this encounter HTN continue home meds HLD continue home meds Hemorrhoids monitor DVT prophylaxis on Sq Lovenox Subjective Date/time seen: 01/26/24 12:19 Interval history: Patient comfortable at bedside MRI no acute changes, ECHO pending PT/OT pending Exam Narrative: General: alert and comfortable Eyes: EOMI, PERRLA ENNT External ears normal, Neck is supple, no masses, Respiratory systems: Clear to auscultation Cardiovascular S1, S2, normal rhythm, no murmur, rub, or gallop; no thrill or palpable murmurs on palpation. Gastrointestinal: soft, non-tender, and non-distended abdomen with no masses; BS present Skin: no rash, lesions, ulcerations, subcutaneous nodules or induration Musculoskeletal: no abnormality and no tenderness, normal ROM Neurologic: Alert and oriented x3, non focal Mental Status Exam: normal affect Objective Data Vital Signs Vital Signs: Vital Signs - 24 hr 01/25/24 12:37 01/25/24 14:48 01/25/24 17:21 Temperature 97.8 F 98 F Pulse Rate 111 H 94 95 Respiratory Rate 20 20 16 Blood Pressure 120/80 119/75 148/91 H Pulse Oximetry 99 98 97 Oxygen Delivery Room Air Fraction of Inspired Oxygen 01/25/24 19:11 01/25/24 19:53 01/25/24 19:57 Temperature Pulse Rate 86 91 83 Respiratory Rate 16 14 Blood Pressure 120/83 127/84 139/93 H Pulse Oximetry 97 98 Oxygen Delivery Room Air Fraction of Inspired Oxygen 01/25/24 19:58 01/25/24 19:59 01/25/24 18:56 Temperature Pulse Rate 91 92 99 Respiratory Rate 19 Blood Pressure 125/87 127/91 H Pulse Oximetry 98 Oxygen Delivery Fraction of Inspired Oxygen 01/25/24 19:15 01/25/24 19:16 01/25/24 19:30 Temperature Pulse Rate 89 88 85 Respiratory Rate 18 19 20 Blood Pressure 141/93 H Pulse Oximetry 99 100 96 Oxygen Delivery Fraction of Inspired Oxygen 01/25/24 19:31 01/25/24 19:57 01/25/24 19:58 Temperature Pulse Rate 87 87 93 Respiratory Rate 12 17 18 Blood Pressure 127/84 139/93 H 125/87 Pulse Oximetry 99 99 98 Oxygen Delivery Fraction of Inspired Oxygen 01/25/24 20:01 01/25/24 20:17 01/25/24 20:45 Temperature Pulse Rate 90 84 75 Respiratory Rate 18 17 16 Blood Pressure 124/94 H Pulse Oximetry 100 98 99 Oxygen Delivery Fraction of Inspired Oxygen 01/25/24 20:55 01/25/24 21:04 01/25/24 21:16 Temperature Pulse Rate 77 80 Respiratory Rate 16 16 Blood Pressure Pulse Oximetry 98 100 95 Oxygen Delivery Fraction of Inspired Oxygen 01/25/24 21:30 01/25/24 21:31 01/25/24 21:45 Temperature Pulse Rate 76 76 75 Respiratory Rate 15 19 13 Blood Pressure 127/86 124/79 Pulse Oximetry 95 97 97 Oxygen Delivery Fraction of Inspired Oxygen 01/25/24 21:46 01/25/24 22:00 01/25/24 22:01 Temperature Pulse Rate 75 79 79 Respiratory Rate 14 14 17 Blood Pressure 133/82 Pulse Oximetry 96 99 99 Oxygen Delivery Fraction of Inspired Oxygen 01/25/24 22:16 01/25/24 22:17 01/25/24 22:32 Temperature Pulse Rate 77 78 80 Respiratory Rate 17 19 17 Blood Pressure 121/79 Pulse Oximetry 97 97 100 Oxygen Delivery Fraction of Inspired Oxygen 01/25/24 22:45 01/25/24 22:46 01/26/24 00:05 Temperature 97.1 F L Pulse Rate 73 75 73 Respiratory Rate 13 18 20 Blood Pressure 126/83 124/76 Pulse Oximetry 99 100 98 Oxygen Delivery Fraction of Inspired Oxygen 01/26/24 00:57 01/26/24 04:00 01/26/24 06:00 Temperature 97.7 F Pulse Rate 65 71 Respiratory Rate 16 Blood Pressure 114/60 Pulse Oximetry 94 Oxygen Delivery Room Air Fraction of Inspired Oxygen 01/26/24 07:58 01/26/24 08:01 01/26/24 08:01 Temperature 98.2 F 98.2 F 98.2 F Pulse Rate 76 79 85 Respiratory Rate 16 16 16 Blood Pressure 127/89 124/82 110/79 Pulse Oximetry 98 99 97 Oxygen Delivery Fraction of Inspired Oxygen 01/26/24 08:56 01/26/24 08:03 01/26/24 11:38 Temperature Pulse Rate 72 Respiratory Rate Blood Pressure Pulse Oximetry 98 Oxygen Delivery Room Air Room Air Fraction of Inspired Oxygen 21 01/26/24 12:00 Temperature Pulse Rate 83 Respiratory Rate Blood Pressure Pulse Oximetry Oxygen Delivery Fraction of Inspired Oxygen Intake/Output Intake/Output: Intake & Output 01/23/24 01/24/24 01/25/24 01/26/24 23:59 23:59 23:59 23:59 Intake Total 750 Balance 750 Meds/Results Medications: Active Medications Generic Name Dose Route Start Last Admin Trade Name Freq PRN Reason Stop Dose Admin Acetaminophen 650 mg 01/26/24 00:32 Acetaminophen 325 Mg Tablet PO Q6H PRN Mild Pain (1-3) or Fever Aspirin 81 mg 01/26/24 09:00 01/26/24 11:35 Aspirin 81 Mg Enteric Tablet PO 81 mg QAM LEONIDES Administration Atorvastatin Calcium 40 mg 01/26/24 21:00 Atorvastatin 40 Mg Tablet PO QHS LEONIDES Finasteride 5 mg 01/26/24 09:00 01/26/24 11:35 Finasteride 5 Mg Tablet PO 5 mg QAM LEONIDES Administration Gabapentin 300 mg 01/26/24 21:00 Gabapentin 300 Mg Capsule PO HS LEONIDES Loratadine 10 mg 01/26/24 09:00 01/26/24 11:35 Loratadine 10 Mg Tablet PO 10 mg DAILY LEONIDES Administration Perflutren Lipid Microsphere 0 ml 01/26/24 00:32 Perflutren Lipid Microspheres 1.5 Ml Vial Diluted To 10 Ml Total Volume IV PUSH 01/29/24 00:33 ONCE PRN adequate visualization Protocol Tamsulosin HCl 0.4 mg 01/26/24 09:00 01/26/24 11:35 Tamsulosin Hcl 0.4 Mg Capsule PO 0.4 mg DAILY LEONIDES Administration Radiology Results: ITS Impressions Chest X-Ray 01/25/24 13:45 Impression: Clear lungs. Status post mitral valve replacement. Head/Neck CTA 01/25/24 20:34 IMPRESSION: 1. Unremarkable CTA head and neck. Percent stenosis per NASCET criteria is 0% Brain MRI 01/26/24 10:03 IMPRESSION: 1. 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 2. Moderate nonspecific cerebral white matter disease and pontine disease, which likely represents chronic small vessel ischemic disease. Labs Labs: Laboratory Results - last 24 hr 01/25/24 01/25/24 01/26/24 14:50 14:58 06:01 WBC 8.7 RBC 4.26 L Hgb 14.2 Hct 41.7 L MCV 97.9 MCH 33.3 MCHC 34.1 RDW 13.5 Plt Count 222 MPV 11.2 H Immature Gran % (Auto) 0.3 Neut % (Auto) 70.9 Lymph % (Auto) 15.9 L [place] % (Auto) 10.1 H Eos % (Auto) 1.6 Baso % (Auto) 1.2 Lymph # (Auto) 1.38 [place] # (Auto) 0.9 H Eos # (Auto) 0.1 Baso # (Auto) 0.1 Abs Immat Gran (auto) 0.03 Absolute Neuts (auto) 6.1 Absolute Nucleated RBC 0.000 Nucleated RBC % 0.0 Sodium 132 L 134 L Potassium 4.0 4.0 Chloride 98 103 Carbon Dioxide 27 29 Anion Gap 7 2 L BUN 6 L 10 Creatinine 0.90 0.90 Estim Creat Clear Calc 50 47 Estimated GFR > 60 > 60 Glucose 79 99 Calcium 9.5 8.8 Magnesium 1.9 Total Bilirubin 0.5 AST 31 ALT 18 Alkaline Phosphatase 64 Troponin I < 0.012 NT-Pro-B Natriuret Pep 163 H Total Protein 8.0 Albumin 4.3 Vitamin B12 608.0 Urine Color Yellow Urine Appearance Clear Urine pH 6.5 Ur Specific [place] 1.005 Urine Protein Negative Urine Glucose (UA) Negative Urine Ketones Negative Ur Blood (Man) Negative Urine Nitrate Negative Urine Bilirubin Negative Urine Urobilinogen 0.2 Leukocyte Esterase Rfl Negative Influenza A (RT-PCR) Negative Influenza B (RT-PCR) Negative RSV (RT-PCR) Negative SARS-CoV-2 RNA (RT-PCR) Negative
--- NOTE | 2024-01-26 15:07 | WPDNEURCNPN ---
Assessment and Plan Assessment and plan (1) Gait instability: Code(s): R26.81 - Unsteadiness on feet Status: Acute (2) Dizziness: Code(s): R42 - Dizziness and giddiness Status: Acute (3) Cerebrovascular disease: Code(s): I67.9 - Cerebrovascular disease, unspecified Status: Acute Assessment and Plan: patient has residual finding on the left upper and lower limb as specifically cerebellar findings with intention tremor of the left upper limb and difficulty with the [id number] testing of the left leg which may also be contributing to his sense of imbalance which she has experienced for over a year. MRI of the brain shows old infarct in the left cerebellar area in addition to left basal ganglia and bilateral thalamus. I reviewed the films and agree with the findings. Plan The patient requires physical therapy for vestibular exercises as well as gait strengthening and I spoke to the nursing staff as well as the hospitalist team regarding this. I shall be glad to review him in my office. He may also have some degree of peripheral neuropathy which may be contributing to his problem and if necessary further investigation into this can be helpful. Consult date: 01/26/24 HPI: Herb Hays is a 88 year old male With complaints of difficulty with walking and balance for last 1 week however he has had some problem on and off for last 1 year. His has cancer of pancreas and he is under lot of stress trying to deal with the her illness. Patient has had MRI of the brain done today which shows some old infarct but no new lesions were seen. CT angiogram of the head and neck was performed on admission which did not show any significant large vessel disease. Patient states that he has had strokes in the past and he was a not aware of any specific symptoms other than the fact that he thought that he passed out and was told that he had a stroke. No history of myocardial infarction. He does have a feeling of a sense of rotation while turning his head on and off for last 1 week. He has been using a cane to get around. No incontinence. He denies any specific weakness in upper lower limbs. No difficulty speech or swallowing. No diplopia. No nausea or vomiting. He is fairly independent with activities of daily living. 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 status: Never smoker Tobacco type: cigarettes Second hand tobacco smoke exposure: Yes Smoking end date: 02/21/82 Alcohol intake: never Substance use: never Substance use type: does not use Do You Feel Safe in your Home?: Yes Lack of Transportation: No Lack of Food: Never True Current Housing: I Have Housing Concerned About Future Housing: No Difficulty Paying Gas/Electric Bills: No Difficulty Paying for Meds: No Currently Unemployed: No Education: Bachelor's Degree Difficulty w/ Childcare or Family Care: No Living arrangements: with family Occupation/Education: retired Gender identity (if verbalized by the patient): Male Sexual Orientation (if Verbalized by the Patient): Straight or Heterosexual Spiritual care concerns: No Meds Home Medications and Allergies Home Medications Medication Instructions Recorded Confirmed Type atorvastatin 40 mg tablet 40 mg PO QHS 02/28/19 01/26/24 History aspirin 81 mg tablet 81 mg PO DAILY 02/26/20 01/26/24 History finasteride 5 mg tablet (Proscar) 5 mg PO QAM 30 days #30 tabs 02/26/20 01/26/24 Rx loratadine 10 mg capsule 10 mg PO DAILY 02/26/20 01/26/24 History gabapentin 300 mg capsule 300 mg PO HS 07/16/23 01/26/24 History tamsulosin 0.4 mg capsule (Flomax) 0.4 mg PO DAILY 01/26/24 01/26/24 History Allergies Allergy/AdvReac Type Severity Reaction Status Date / Time simvastatin Allergy Unknown Unknown Verified 01/25/24 10:36 Vital Signs Vital Signs - 24 hr 01/25/24 17:21 01/25/24 19:11 01/25/24 19:53 Temperature 98 F Pulse Rate 95 86 91 Respiratory Rate 16 16 14 Blood Pressure 148/91 H 120/83 127/84 Pulse Oximetry 97 97 98 Oxygen Delivery Room Air Fraction of Inspired Oxygen 01/25/24 19:57 01/25/24 19:58 01/25/24 19:59 Temperature Pulse Rate 83 91 92 Respiratory Rate Blood Pressure 139/93 H 125/87 127/91 H Pulse Oximetry Oxygen Delivery Fraction of Inspired Oxygen 01/25/24 18:56 01/25/24 19:15 01/25/24 19:16 Temperature Pulse Rate 99 89 88 Respiratory Rate 19 18 19 Blood Pressure 141/93 H Pulse Oximetry 98 99 100 Oxygen Delivery Fraction of Inspired Oxygen 01/25/24 19:30 01/25/24 19:31 01/25/24 19:57 Temperature Pulse Rate 85 87 87 Respiratory Rate 20 12 17 Blood Pressure 127/84 139/93 H Pulse Oximetry 96 99 99 Oxygen Delivery Fraction of Inspired Oxygen 01/25/24 19:58 01/25/24 20:01 01/25/24 20:17 Temperature Pulse Rate 93 90 84 Respiratory Rate 18 18 17 Blood Pressure 125/87 Pulse Oximetry 98 100 98 Oxygen Delivery Fraction of Inspired Oxygen 01/25/24 20:45 01/25/24 20:55 01/25/24 21:04 Temperature Pulse Rate 75 77 Respiratory Rate 16 16 Blood Pressure 124/94 H Pulse Oximetry 99 98 100 Oxygen Delivery Fraction of Inspired Oxygen 01/25/24 21:16 01/25/24 21:30 01/25/24 21:31 Temperature Pulse Rate 80 76 76 Respiratory Rate 16 15 19 Blood Pressure 127/86 Pulse Oximetry 95 95 97 Oxygen Delivery Fraction of Inspired Oxygen 01/25/24 21:45 01/25/24 21:46 01/25/24 22:00 Temperature Pulse Rate 75 75 79 Respiratory Rate 13 14 14 Blood Pressure 124/79 133/82 Pulse Oximetry 97 96 99 Oxygen Delivery Fraction of Inspired Oxygen 01/25/24 22:01 01/25/24 22:16 01/25/24 22:17 Temperature Pulse Rate 79 77 78 Respiratory Rate 17 17 19 Blood Pressure 121/79 Pulse Oximetry 99 97 97 Oxygen Delivery Fraction of Inspired Oxygen 01/25/24 22:32 01/25/24 22:45 01/25/24 22:46 Temperature Pulse Rate 80 73 75 Respiratory Rate 17 13 18 Blood Pressure 126/83 Pulse Oximetry 100 99 100 Oxygen Delivery Fraction of Inspired Oxygen 01/26/24 00:05 01/26/24 00:57 01/26/24 04:00 Temperature 97.1 F L Pulse Rate 73 65 Respiratory Rate 20 Blood Pressure 124/76 Pulse Oximetry 98 Oxygen Delivery Room Air Fraction of Inspired Oxygen 01/26/24 06:00 01/26/24 07:58 01/26/24 08:01 Temperature 97.7 F 98.2 F 98.2 F Pulse Rate 71 76 79 Respiratory Rate 16 16 16 Blood Pressure 114/60 127/89 124/82 Pulse Oximetry 94 98 99 Oxygen Delivery Fraction of Inspired Oxygen 01/26/24 08:01 01/26/24 08:56 01/26/24 08:03 Temperature 98.2 F Pulse Rate 85 72 Respiratory Rate 16 Blood Pressure 110/79 Pulse Oximetry 97 98 Oxygen Delivery Room Air Fraction of Inspired Oxygen 21 01/26/24 11:38 01/26/24 12:00 01/26/24 14:00 Temperature 97.2 F L Pulse Rate 83 82 Respiratory Rate 16 Blood Pressure 129/67 Pulse Oximetry 98 Oxygen Delivery Room Air Fraction of Inspired Oxygen 01/26/24 12:49 01/26/24 14:04 01/26/24 14:04 Temperature 97.1 F L 97.1 F L 97.1 F L Pulse Rate 84 105 H 86 Respiratory Rate 16 16 16 Blood Pressure 132/69 118/71 113/71 Pulse Oximetry 97 97 98 Oxygen Delivery Fraction of Inspired Oxygen Exam Const: General: cooperative, well developed and alert Orientation/consciousness: patient oriented x3 HENMT: Head: atraumatic Mouth: Yes oropharynx normal Eyes: Alignment and Position: position normal Pupils: Equal, round and reactive pupils present EOM: EOMs intact bilaterally Neck: Neck: supple Resp: Effort & Inspection: normal respiratory effort Neuro: General: patient oriented x3 Cranial nerves: Yes CN's II-XII intact bilaterally, Yes facial sensation intact/muscles of mastication intact, Yes Equal, round and reactive pupils present, Yes facial symmetry and Yes Midline tongue present Cognition (Neuro): normal cognition Speech: normal speech Motor exam (neuro): 5/5 motor strength present throughout Sensory Exam: normal sensation Coordination: Normal rapid alternating movements of the distal upper extremity present (Neuro) Other: Mild intention tremor of the left hand compared to the right side. Mild tremor of the right hand was also noted however on [id number] testing he has mild incoordination of the left leg but not noted so on the right leg. The gait however did not show any widening and was able to walk short distance independently. No weakness in upper lower limbs. Deep tendon reflexes were were 2/4 except ankle fill 104. There is some distal sensory loss in the lower limbs in stocking pattern. Results Labs 01/25/24 14:50 01/26/24 06:01 Labs: Short CBC 01/25/24 Range/Units 14:50 WBC 8.7 (4.5-10.0) K/mm3 Hgb 14.2 (14.0-18.0) g/dL Hct 41.7 L (42.0-52.0) % Plt Count 222 (150-375) k/mm3 BMP 01/25/24 01/26/24 14:50 06:01 Sodium 132 L 134 L Potassium 4.0 4.0 Chloride 98 103 Carbon Dioxide 27 29 BUN 6 L 10 Creatinine 0.90 0.90 Glucose 79 99 Calcium 9.5 8.8 Cardiac Enzymes 01/25/24 Range/Units 14:50 Troponin I < 0.012 (0.000-0.034) ng/mL Liver Function 01/25/24 Range/Units 14:50 Total Bilirubin 0.5 (0.2-1.3) mg/dL AST 31 (17-59) U/L ALT 18 (6-50) U/L Alkaline Phosphatase 64 (38-126) U/L Albumin 4.3 (3.5-5.1) g/dL Urine 01/25/24 Range/Units 14:58 Urine Color Yellow (Yellow) Urine Appearance Clear (Clear) Urine pH 6.5 (5.0-9.0) Ur Specific [place] 1.005 (1.001-1.035) Urine Protein Negative (Negative) mg/dL Urine Glucose (UA) Negative (Negative) mg/dL
[2024-01-26] MEDS: ATORVASTATIN 40 MG TABLET PO (20:19)
[2024-01-26] MEDS: GABAPENTIN 300 MG CAPSULE PO (20:19)
[2024-01-27] VITALS: PULSE 70
[2024-01-27 04:00] VITALS: PULSE 76
[2024-01-27 06:12] VITALS: BP 117/78; PULSE 75
[2024-01-27 06:14] VITALS: BP 102/62; PULSE 77
[2024-01-27 08:00] VITALS: PULSE 75
[2024-01-27] MEDS: TAMSULOSIN HCL 0.4 MG CAPSULE PO (09:04)
[2024-01-27] MEDS: FINASTERIDE 5 MG TABLET PO (09:04)
[2024-01-27] MEDS: LORATADINE 10 MG TABLET PO (09:04)
[2024-01-27] MEDS: ASPIRIN 81 MG ENTERIC TABLET PO (09:04)
[2024-01-27] MEDS: ENOXAPARIN 40 MG/0.4 ML SYRINGE SUB-Q (09:05)
[2024-01-27 10:29] VITALS: BP 141/72; PULSE 104; RESP 24; TEMP 36.8; O2SAT 92
--- NOTE | 2024-01-27 13:06 | PM.DS ---
DS: Admitting Diagnosis Discharge Date 01/27/24 Admitting Diagnosis Dizziness: DS: Discharge Diagnosis Discharge Diagnosis (1) Gait instability: Code(s): R26.81 - Unsteadiness on feet Status: Acute (2) Dizziness: Code(s): R42 - Dizziness and giddiness Status: Acute DS: Summary Hospital Course Reason for hospitalization: 88-year-old male past medical history of mitral valve prolapse status post repair in 2004, hyperlipidemia, CVA presents to the ER on account of dizziness and gait instability. Patient reported symptoms has been going on for couple of months. Denies any fall no lightheadedness, no head trauma, no vomiting abdominal pain no chest pain shortness of breath. Evaluation in the ER CT head and CTA head and neck were unremarkable. B12 608. Echo showed EF 60-65% grade 1 diastolic dysfunction. Chest x-ray unremarkable. Neurology evaluated and noted gait instability on intention tremor and recommended vestibular therapy. Physical therapy and occupational therapy evaluate and recommend outpatient therapy. Patient will discharged which the patient therapy vestibular therapy. Will follow up with Neurology as instructed. Topical management Plan Gait instability and dizziness MRI brain no acute changes CT head and CTA head and neck unremarkable B12 608 ECHO showed EF 60-65% Neurology evaluated and recommended outpatient vestibular therapy PT/OT recommends outpatient therapy F/u wiht Neurology as instructed Failure to thrive, resolved patient noted that he has lost 20-30 lbs the past few months patient noted he has had good appetite and intake thsi admission HTN continue home meds HLD continue home meds Hemorrhoids monitor F/u with PCP in 3-5 days, f/u with neurology as instructed Hospital Course: 88-year-old male past medical history of mitral valve prolapse status post repair in 2004, hyperlipidemia, CVA presents to the ER on account of dizziness and gait instability. Patient reported symptoms has been going on for couple of months. Denies any fall no lightheadedness, no head trauma, no vomiting abdominal pain no chest pain shortness of breath. Evaluation in the ER CT head and CTA head and neck were unremarkable. B12 608. Echo showed EF 60-65% grade 1 diastolic dysfunction. Chest x-ray unremarkable. Neurology evaluated and noted gait instability on intention tremor and recommended vestibular therapy. Physical therapy and occupational therapy evaluate and recommend outpatient therapy. Patient will discharged which the patient therapy vestibular therapy. Will follow up with Neurology as instructed. Topical management Plan Gait instability and dizziness MRI brain no acute changes CT head and CTA head and neck unremarkable B12 608 ECHO showed EF 60-65% Neurology evaluated and recommended outpatient vestibular therapy PT/OT recommends outpatient therapy F/u wiht Neurology as instructed Failure to thrive, resolved patient noted that he has lost 20-30 lbs the past few months patient noted he has had good appetite and intake thsi admission HTN continue home meds HLD continue home meds Hemorrhoids monitor F/u with PCP in 3-5 days, f/u with neurology as instructed Time Spent with Patient Time attestation: Total time spent providing and/or coordinating discharge services: Discharge Plan Discharge Attending physician on discharge: Clover Drake Consulting providers: Jostin Vickers Discharging Clinician: Clover Drake Anticipated Discharge Date/Time: 01/27/24 13:03 Patient Disposition: Home, Self-Care Activity: as tolerated Diet: as tolerated Patient Instructions: Antibiotic Form Stand Alone Forms: General Discharge Information Follow-up/Referrals: Jostin Vickers MD [Physician] - (F/u with PCP in 3-5 days ) [facility],MAHENDRA [Primary Care Provider] - (F/u with PCP in 3-5 days ) Discharge Medications: Continued gabapentin 300 mg Capsule 300 mg PO HS atorvastatin 40 mg tablet 40 mg PO QHS loratadine 10 mg Capsule 10 mg PO DAILY aspirin 81 mg Tablet 81 mg PO DAILY finasteride [Proscar] 5 mg Tablet 5 mg PO QAM 30 Days Qty: 30 6RF tamsulosin [Flomax] 0.4 mg capsule 0.4 mg PO DAILY Other Ambulatory Orders: PT Outpatient Eval and Treat (ONCE) Timeframe: [id number] Location: Determined by Patient Ordered By: Clover Drake Date of admission: 01/25/24 21:58 Primary Care Provider: [facility],MAHENDRA Admitting Provider: Clover Drake Attending physician on admission: Clover Drake Condition: Stable
--- NOTE | 2024-01-31 15:46 | HP_ITS ---
DATE OF SERVICE: 01/25/2024 CHIEF COMPLAINT: Weakness and balance problems. HISTORY OF PRESENT ILLNESS: This is a very pleasant 88-year-old male with history of stroke, mitral valve prolapse status post repair/replacement in 2004, dyslipidemia, benign prostatic hyperplasia, and peripheral neuropathy, who presented to the Emergency Department via private vehicle for evaluation of weakness. The patient provides the following history. His was recently diagnosed with pancreatic cancer and is currently in the hospital and he admits this is causing him a lot of stress and in fact, he has lost about 35 pounds in the last couple of months, which he attributes to that stress. He has gradually become weak and his balance is poor however these seem to be worse the last couple of days. At times, he feels lightheaded when going from a sitting to standing position, but he also reports feeling as though he is moving or the room is moving at times as well. He spoke with his team at the [facility] and they encouraged him to come to the ER for evaluation. He has had some falls, but not recently. He has otherwise been feeling okay and is trying to stay busy. In fact, a couple days ago, he was out clearing brush and reports that he has had some pain in his right shoulder, which he thinks is due to overuse. He denies recent falls, visual changes, facial droop, difficulty speaking and swallowing, focal weakness, and change in paresthesias from baseline. He also denies chest and pleuritic pain, palpitations, sensations of racing heart, nausea, vomiting, diarrhea, and dysuria. He has not noticed any blood in his stool. He is up to date on his colonoscopy, the last being about 2 years ago, at which time he reports having 7 benign polyps removed. He is followed by Urology and has never had an elevated PSA. No known history of malignancy. REVIEW OF SYSTEMS: 12 systems were reviewed and are negative, except for as per HPI. PAST MEDICAL HISTORY: 1. Hypertension. 2. Dyslipidemia. 3. Benign prostatic hyperplasia. 4. Next peripheral neuropathy. PAST SURGICAL HISTORY: 1. Hemorrhoidectomy. 2. Mitral valve replacement. HOME MEDICATIONS: 1. Aspirin 81 mg daily. 2. Atorvastatin 40 mg daily. 3. Finasteride 5 mg daily. 4. Gabapentin 300 mg at bedtime. 5. Lactobacillus acidophilus capsule 10 mg daily. 6. Loratadine 10 mg daily. 7. Tamsulosin 0.4 mg twice daily. ALLERGIES: SIMVASTATIN. SOCIAL HISTORY: The patient is and lives with his spouse in [place]. He denies alcohol, tobacco, or illicit substance abuse. He designates his as his surrogate decision maker and wishes to be a full code. PERTINENT LABORATORY DATA: Sodium 132, potassium 4.0, BUN 6, creatinine 0.90, calcium 9.5, and total bilirubin 0.5. AST 31, ALT 18, alkaline phosphatase 64, and total protein 8.0. WBC count 8.7, hemoglobin 14.2, and platelet 222. ProBNP 163. Troponin less than 0.012. He was negative for influenza, RSV, and COVID. Urinalysis was unremarkable. IMAGIN. Chest x-ray, lungs are clear. Status post mitral valve replacement. 2. CT of the head and neck unremarkable. PHYSICAL EXAMINATION: CURRENT VITAL SIGNS: Pulse 73, respiratory rate 20, blood pressure 124/76, pulse ox 98% on room air, and temperature 97.1. General: Well-developed, elderly male appearing a bit younger than his stated age in the semi-Lester position. In no acute distress. Weight 74.90 kg. BMI 21.5. HEENT: Normocephalic, atraumatic. Pupils are reactive. Extraocular motions are intact. He is wearing corrective lenses. Tacky mucous membranes. NECK: Supple. No obvious bruits. RESPIRATORY: Respirations are nonlabored. LUNGS: Clear to auscultation. CARDIOVASCULAR: Regular rate and rhythm with normal S1, S2. There is a systolic murmur at the apex. GASTROINTESTINAL: Abdomen is soft, nontender, nondistended with positive bowel sounds. INTEGUMENT: Skin is warm and dry. EXTREMITIES: No cyanosis or clubbing. Trace periankle edema bilaterally. NEUROLOGIC: Alert and oriented x4. Cranial nerves 2 to 12 are grossly intact. No pronator drift. Normal [id number] and rapid alternating hand blind lacer and foot pushes equal bilaterally. Gait not assessed. PSYCHIATRIC: Pleasant and cooperative with appropriate mood and affect. MUSCULOSKELETAL: He has some tenderness to palpation over the anterolateral right shoulder and expresses some pain with active range of motion of the shoulder as well. No gross deformities noted. IMPRESSION: 1. Vertigo. 2. Generalized weakness. 3. Weight loss. 4. Benign prostatic hyperplasia. 5. Peripheral neuropathy. PLAN: The patient presented to the Emergency Department for evaluation of weakness, vertigo, and weight loss as detailed in HPI. Imaging, labs, and EKG were all reviewed. The patient has lost about 35 pounds in 2 months, which is likely due to stress from his 's health concerns. He is up to date on his screenings and occult malignancy seems less likely. He is probably increasingly weak from his weight loss and he has been less active, helping care for his as well. Over the last year or so, he has had issues with balance, which may be due to his neuropathy. Again, this does not seem to be a new finding. However, it has been worse over the past 5 days or so. CTA of the head and neck was unremarkable however. Brain MRI ordered to rule out CVA, which seems less likely. PT and OT has been consulted. Initiate fall precautions. Check orthostatic vital signs. He will be monitored on telemetry overnight. Blood pressures were reviewed and they are stable. His home medications will be reviewed and resumed as appropriate. Sha I MT: Ashu HILL
--- NOTE | 2024-02-03 12:47 | WPDHPUPDATE1 ---
History and Physical Update Update Date/Time: 02/03/24 12:47 Addendum to 01/25/2024 history and physical: I have utilized all available immediate resources to obtain, update, or review the patient's current medications (including all prescriptions, [id number] products, herbals, cannabis/cannabidiol products, and vitamin/mineral/dietary (nutritional) supplements). YES I confirmed that the patient's Advance Care Plan is present, code status is documented, or surrogate decision maker is listed in the patient's medical record. YES
== END 2024-01-27 14:01 | disposition home or self-care (01) ==
LOC: ANHED 22:00 → ANH3MEDSUR 23:25
PROVIDERS: Physician Assistant; Admitting Provider Internal Medicine; Emergency Provider Emergency Medicine; Visit Provider Internal Medicine
DX: R42 Dizziness and giddiness (principal); R26.81 Unsteadiness on feet; I67.9 Cerebrovascular disease, unspecified; G25.2 Other specified forms of tremor; M54.30 Sciatica, unspecified side; R63.4 Abnormal weight loss; R62.7 Adult failure to thrive; Z68.20 Body mass index [BMI] 20.0-20.9, adult; I10 Essential (primary) hypertension; E78.5 Hyperlipidemia, unspecified; N40.0 Benign prostatic hyperplasia without lower urinary tract symptoms; G62.9 Polyneuropathy, unspecified; K64.8 Other hemorrhoids; J30.2 Other seasonal allergic rhinitis; Z20.822 Contact with and (suspected) exposure to COVID-19; Z79.82 Long term (current) use of aspirin; Z79.899 Other long term (current) drug therapy; Z87.891 Personal history of nicotine dependence; Z95.2 Presence of prosthetic heart valve; Z86.73 Personal history of transient ischemic attack (TIA), and cerebral infarction without residual deficits
CPT/HCPCS: 36415; 70496; 70498; 70553; 71046; 80048; 80053; 81003; 82607; 83735; 83880; 84484; 85025; 87637; 93005; 93306; 97161; 97165; 99285; A9270; A9577; G0378; J1650; Q9967